=== PATIENT | male | born 1940 | race Caucasian/White ===

== ENCOUNTER 2017-01-11 | Outpatient (CLI) | payer MEDICARE | END 2017-01-11 11:34 | disposition critical access hospital (66) | CPT/HCPCS: A0425; A0427 ==

== ENCOUNTER 2017-01-11 12:00 | Emergency (ER) | payer MEDICARE ==
[2017-01-11] MEDS ORDERED: SODIUM CHLORIDE 0.9% 1,000 ML IV ONE (13:10)
== END 2017-01-11 15:04 | disposition home or self-care (01) ==
DX: R55 Syncope and collapse (principal); I95.89 Other hypotension; I10 Essential (primary) hypertension; I48.91 Unspecified atrial fibrillation; F17.200 Nicotine dependence, unspecified, uncomplicated

== ENCOUNTER 2017-12-06 12:46 | Outpatient (CLI) | payer MEDICARE | END 2017-12-06 12:47 | disposition home or self-care (01) | LOC: DI 12:46 | PROVIDERS: ATTEND Internal Medicine Cardiovascular Disease | DX: I77.810 Thoracic aortic ectasia (principal) | CPT/HCPCS: 93306 ==

== ENCOUNTER 2018-02-27 08:11 | Outpatient (CLI) | payer MEDICARE ==
[2018-02-27] MEDS ORDERED: IOPAMIDOL-300 50 ML VIAL ONE (08:32)
[2018-02-27] MEDS ORDERED: IOPAMIDOL-300 100 ML VIAL ONE (09:44)
[2018-02-27] MEDS ORDERED: IOPAMIDOL-300 50 ML VIAL PO ONE (10:20)
[2018-02-27] MEDS ORDERED: IOPAMIDOL-300 100 ML VIAL IVP ONE (10:20)
--- NOTE | 2018-02-27 12:16 | CT Report ---
CT ABDOMEN AND PELVIS WITH CONTRAST: 02/27/2018 CLINICAL INDICATION: Weight loss, history of Crohn's with ostomy. TECHNIQUE: Axial CT images of the abdomen and pelvis were obtained with 100 mL Isovue 300 intravenously as well as oral contrast. COMPARISON: 09/03/2016. FINDINGS: Limited evaluation of the lung bases demonstrate pleural calcifications and mild emphysema. ABDOMEN: The liver, spleen, pancreas and adrenal glands appear unremarkable. The kidneys again demonstrate bilateral cysts. No solid renal lesion is appreciated. The gallbladder is not dilated. No bowel dilatation, free gas, or free fluid is present. No abdominal adenopathy is seen. PELVIS: A right lower quadrant ostomy is present. Hutch diverticula are noted arising from the urinary bladder. No pelvic adenopathy or free fluid is present. Osseous structures demonstrate degenerative changes. IMPRESSION: NO EVIDENT ETIOLOGY FOR PATIENT'S WEIGHT LOSS. MULTIPLE RENAL CYSTS. POSTOPERATIVE CHANGES, WITH RIGHT LOWER QUADRANT OSTOMY. CT DOSE REDUCTION STATEMENT In accordance with CT protocol optimization, one or more of the following dose reduction techniques were utilized for this exam: automated exposure control, adjustment of mA and/or KV based on patient size, or use of iterative reconstructive technique. TD: [facility]27/2018 12[facility]15 [facility]
== END 2018-02-27 08:12 | disposition home or self-care (01) ==
LOC: DI 08:11
PROVIDERS: ATTEND Internal Medicine Gastroenterology
DX: R63.4 Abnormal weight loss (principal); K50.90 Crohn's disease, unspecified, without complications; Z93.3 Colostomy status
CPT/HCPCS: 74177; Q9967

== ENCOUNTER 2018-08-31 01:01 | Emergency (ER) | payer MEDICARE ==
[2018-08-31 01:50] LABS: BASOPHILS # (AUTO) 0.1 10^3/uL (0.0-0.1); BASOPHILS % (AUTO) 0.9 %; EOSINOPHILS # (AUTO) 0.1 10^3/uL (0.0-0.7); EOSINOPHILS % (AUTO) 0.6 %; HGB - HEMOGLOBIN 10.7 g/dL (14.0-18.0); LYMPHOCYTES % (AUTO) 11.7 %; MEAN CORPUSCULAR HEMOGLOBIN 34.6 pg (27.0-31.0); MEAN CORPUSCULAR HGB CONC 34.5 g/dL (32.0-36.0); MEAN CORPUSCULAR VOLUME 100.3 fL (80.0-94.0); MEAN PLATELET VOLUME 8.4 fL (7.4-11.4); MONOCYTES # (AUTO) 0.4 10^3/uL (0.0-1.0); MONOCYTES % (AUTO) 4.4 %; NEUTROPHILS # (AUTO) 7.1 10^3/uL (1.5-6.6); NEUTROPHILS % (AUTO) 82.4 %; PLT - PLATELET COUNT 225 10^3/uL (130-450); RED CELL DISTRIBUTION WIDTH 14.4 % (12.0-15.0); WHITE BLOOD COUNT 8.6 x10^3/uL (4.8-10.8)
--- NOTE | 2018-08-31 02:06 | XRAY Report ---
Reason: weakness Procedure Date: 08/31/2018 Accession Number: [id number] / [id number] Procedure: XR - Chest 2 View X-Ray CPT Code: 72950 FULL RESULT: EXAM: CHEST RADIOGRAPHY EXAM DATE: 08/31/2018 01:24 AM. CLINICAL HISTORY: Weakness. COMPARISON: CHEST 2 VIEW PA/LAT 01/24/2016 11:09 AM. TECHNIQUE: 2 views. FINDINGS: Lungs/Pleura: No focal opacities evident. No pleural effusion. No pneumothorax. Normal volumes. Mediastinum: Heart and mediastinal contours are unremarkable. Other: None. IMPRESSION: 1. No acute infiltrates. RADIA
--- NOTE | 2018-08-31 02:21 | ED Physician Documentation ---
PD HPI GI BLEED - Stated complaint Stated Complaint: WEAKNESS - Chief complaint Chief Complaint: Abd Pain - Additional information Additional information: 80-year-old male presents the emergency department with 2 days of increasing GI bleeding. The patient has a history of an ileostomySecondary to Crohn's disease. The patient has had the ileostomy for numerous years. The patient's noticed in the past 2 days increased bright red blood mixed in with liquid stool. The symptoms have been getting progressively worse. The patient now reports feeling weak and dizzy. No triggering factors. Symptoms are described as moderate. No relieving factors. No other associated symptoms. PD PAST MEDICAL HISTORY - Past Medical History Cardiovascular: Hypertension, Atrial fibrillation Respiratory: None Endocrine/Autoimmune: None GI: Crohn's disease - Past Surgical History Past Surgical History: Yes General: Bowel surgery - Present Medications Home Medications: Ambulatory Orders Medication Instructions Recorded Confirmed Multivitamin [Multivitamins] 1 each PO DAILY 12/10/13 08/31/18 [place]-3 Fatty Acids/Fish Oil [Fish 1,000 mg PO BID 12/10/13 08/31/18 Oil 1,000 mg Capsule] Alendronate [Fosamax] 70 mg PO Q7D 12/05/15 08/31/18 Cholecalciferol (Vitamin D3) 5,000 unit PO DAILY 12/05/15 08/31/18 [Vitamin D] Levothyroxine [Synthroid] 100 mcg PO DAILY 12/05/15 08/31/18 azaTHIOprine [Azathioprine] 100 mg PO DAILY 12/05/15 08/31/18 Cyanocobalamin (Vitamin B-12) 1,000 mcg PO DAILY 01/30/16 08/31/18 [Vitamin B12] Lisinopril 2.5 mg PO DAILY 01/11/17 08/31/18 Metoprolol Tartrate 25 mg PO DAILY 01/11/17 08/31/18 - Allergies Allergies/Adverse Reactions: Allergies Allergy/AdvReac Type Severity Reaction Status Date / Time No Known Drug Allergies Allergy Verified 08/31/18 01:13 - Social History Does the pt smoke?: Yes Smoking Status: Current every day smoker Does the pt drink ETOH?: Yes Does the pt have substance abuse?: No - Immunizations Immunizations are current?: Yes - POLST Patient has POLST: No Results - Vitals Vitals: Vital Signs - 24 hr 08/31/18 08/31/18 08/31/18 01:07 02:09 02:38 Temperature 36.6 C Heart Rate 89 84 84 Respiratory 16 18 16 Rate Blood Pressure 96/75 106/72 100/60 O2 Saturation 100 100 100 08/31/18 03:36 Temperature Heart Rate 82 Respiratory 14 Rate Blood Pressure 101/59 L O2 Saturation 98 Oxygen O2 Source Room air - EKG (time done) No standard instances Rhythm: NSR Intervals: Normal SD, QRS normal QRS: Normal Ischemia: Non specific changes - Labs Labs: Laboratory Tests 08/31/18 08/31/18 08/31/18 01:34 01:34 02:15 WBC 8.6 RBC 3.10 L Hgb 10.7 L Hct 31.1 L MCV 100.3 H MCH 34.6 H MCHC 34.5 RDW 14.4 Plt Count 225 MPV 8.4 Neut # (Auto) 7.1 H Lymph # (Auto) 1.0 L [place] # (Auto) 0.4 Eos # (Auto) 0.1 Baso # (Auto) 0.1 Absolute Nucleated RBC 0.00 Nucleated RBC % 0.0 PT 12.7 H INR 1.1 APTT 24.4 L Sodium Potassium Chloride Carbon Dioxide Anion Gap BUN Creatinine Estimated GFR (MDRD) Glucose Calcium Total Bilirubin AST ALT Alkaline Phosphatase Troponin I B-Natriuretic Peptide Total Protein Albumin Globulin Albumin/Globulin Ratio Lipase Urine Color Urine Clarity Urine pH Ur Specific [place] Urine Protein Urine Glucose (UA) Urine Ketones Urine Occult Blood Urine Nitrite Urine Bilirubin Urine Urobilinogen Ur Leukocyte Esterase Ur Microscopic Review Urine Culture Comments Blood Type O POSITIVE Antibody Screen NEGATIVE 08/31/18 08/31/18 08/31/18 02:15 02:15 02:15 WBC RBC Hgb Hct MCV MCH MCHC RDW Plt Count MPV Neut # (Auto) Lymph # (Auto) [place] # (Auto) Eos # (Auto) Baso # (Auto) Absolute Nucleated RBC Nucleated RBC % PT INR APTT Sodium 130 L Potassium 4.2 Chloride 103 Carbon Dioxide 20 L Anion Gap 7.0 BUN 33 H Creatinine 1.3 H Estimated GFR (MDRD) 54 L Glucose 105 H Calcium 8.1 L Total Bilirubin 0.5 AST 28 ALT 16 Alkaline Phosphatase 55 Troponin I < 0.04 B-Natriuretic Peptide 13 Total Protein 6.1 L Albumin 3.2 Globulin 2.9 Albumin/Globulin Ratio 1.1 Lipase 45 Urine Color Urine Clarity Urine pH Ur Specific [place] Urine Protein Urine Glucose (UA) Urine Ketones Urine Occult Blood Urine Nitrite Urine Bilirubin Urine Urobilinogen Ur Leukocyte Esterase Ur Microscopic Review Urine Culture Comments Blood Type Antibody Screen 08/31/18 03:15 WBC RBC Hgb Hct MCV MCH MCHC RDW Plt Count MPV Neut # (Auto) Lymph # (Auto) [place] # (Auto) Eos # (Auto) Baso # (Auto) Absolute Nucleated RBC Nucleated RBC % PT INR APTT Sodium Potassium Chloride Carbon Dioxide Anion Gap BUN Creatinine Estimated GFR (MDRD) Glucose Calcium Total Bilirubin AST ALT Alkaline Phosphatase Troponin I B-Natriuretic Peptide Total Protein Albumin Globulin Albumin/Globulin Ratio Lipase Urine Color YELLOW Urine Clarity CLEAR Urine pH 6.0 Ur Specific [place] <=1.005 Urine Protein NEGATIVE Urine Glucose (UA) NEGATIVE Urine Ketones NEGATIVE Urine Occult Blood NEGATIVE Urine Nitrite NEGATIVE Urine Bilirubin NEGATIVE Urine Urobilinogen 0.2 (NORMAL) Ur Leukocyte Esterase NEGATIVE Ur Microscopic Review NOT INDICATED Urine Culture Comments NOT INDICATED Blood Type Antibody Screen PD MEDICAL DECISION MAKING - ED course ED course: The case was discussed with the on-call general surgeon Dr. Castanon: I discussed with him the patient's presentation, past medical history and current findings. He recommends transfer to a center that could further manage the patient's GI bleeding since he does not do any endoscopies. The [facility] transfer center was contacted, I discussed the case with the transfer center physician who agrees with the plan for transfer. The patient has had a drop in his hemoglobin when compared to a prior hemoglobin from 2017. The patient's currently stable and has no emergent need for blood transfusion. The patient will require ongoing management and rechecking of his hemoglobin and hematocrit. The patient will require transfer to a center that can manage his acute symptoms. The findings and plan were discussed with the patient and his who understand and agree. The patient appears stable for transfer. Departure - Departure Disposition: 02 Transfer Acute Care Hosp Clinical Impression: GI bleed Qualifiers: GI bleed type/associated pathology: unspecified gastrointestinal hemorrhage type Qualified Code(s): K92.2 - Gastrointestinal hemorrhage, unspecified Anemia Qualifiers: Anemia type: unspecified type Qualified Code(s): D64.9 - Anemia, unspecified Condition: Fair
[2018-08-31 02:29] LABS: INR 1.1 (0.8-1.2); PT - PROTHROMBIN TIME 12.7 secs (9.9-12.6)
[2018-08-31 02:36] LABS: ALBUMIN 3.2 g/dL (3.2-5.5); ALBUMIN/GLOBULIN RATIO 1.1 (1.0-2.2); BILIRUBIN,TOTAL 0.5 mg/dL (0.2-1.0); CALCIUM 8.1 mg/dL (8.5-10.3); CREATININE 1.3 mg/dL (0.6-1.2); TOTAL PROTEIN 6.1 g/dL (6.7-8.2)
[2018-08-31 03:20] LABS: BILIRUBIN,URINE NEGATIVE (NEGATIVE); GLUCOSE, URINE (UA) NEGATIVE (NEGATIVE); KETONES,URINE (UA) NEGATIVE (NEGATIVE); LEUKOCYTE ESTERASE, URINE NEGATIVE (NEGATIVE); NITRITE,URINE NEGATIVE (NEGATIVE); OCCULT BLOOD,URINE NEGATIVE (NEGATIVE); PROTEIN,URINE NEGATIVE (NEGATIVE); UROBILINOGEN,URINE 0.2 (NORMAL) E.U./dL (NORMAL)
[2018-08-31 03:22] LABS: CLARITY,URINE CLEAR (CLEAR)
[2018-08-31 05:49] VITALS: BP 92/66
[2018-08-31] MEDS ORDERED: SODIUM CHLORIDE 0.9% 500 ML IV ONE (06:08)
== END 2018-08-31 06:45 | disposition short-term general hospital (02) ==
LOC: ED 01:01
DX: K92.1 Melena (principal); D64.9 Anemia, unspecified; Z87.19 Personal history of other diseases of the digestive system; Z93.2 Ileostomy status; I10 Essential (primary) hypertension; F17.200 Nicotine dependence, unspecified, uncomplicated
CPT/HCPCS: 36415; 71046; 80053; 81001; 81003; 83690; 83880; 84484; 85025; 85610; 85730; 86850; 86900; 86901; 87086; 93005; 99284

== ENCOUNTER 2018-08-31 08:05 | Outpatient (CLI) | payer MEDICARE | END 2018-08-31 08:06 | disposition short-term general hospital (02) | LOC: EMS 08:05 | PROVIDERS: ATTEND Surgery | DX: K92.2 Gastrointestinal hemorrhage, unspecified (principal) | CPT/HCPCS: A0170; A0425; A0426 ==

== ENCOUNTER 2018-09-16 08:20 | Outpatient (CLI) | payer MEDICARE ==
[2018-09-16 11:38] LABS: BASOPHILS % (AUTO) 0.2 %; EOSINOPHILS % (AUTO) 0.1 %; LYMPHOCYTES # (AUTO) 0.5 10^3/uL (1.5-3.5); LYMPHOCYTES % (AUTO) 4.2 %; MEAN CORPUSCULAR HEMOGLOBIN 32.2 pg (27.0-31.0); MEAN CORPUSCULAR HGB CONC 33.2 g/dL (32.0-36.0); MEAN PLATELET VOLUME 8.2 fL (7.4-11.4); MONOCYTES # (AUTO) 0.3 10^3/uL (0.0-1.0); MONOCYTES % (AUTO) 2.7 %; NEUTROPHILS # (AUTO) 10.6 10^3/uL (1.5-6.6); NEUTROPHILS % (AUTO) 92.8 %; PLT - PLATELET COUNT 293 10^3/uL (130-450); RED BLOOD COUNT 2.81 10^6/uL (4.70-6.10); RED CELL DISTRIBUTION WIDTH 18.1 % (12.0-15.0); WHITE BLOOD COUNT 11.4 x10^3/uL (4.8-10.8)
[2018-09-16 11:56] LABS: ALBUMIN 3.3 g/dL (3.2-5.5); ALKALINE PHOSPHATASE 55 IU/L (42-121); ALT ALANINE AMINOTRANSFERASE 20 IU/L (10-60); AST ASPARTATE AMINOTRANSFERASE 23 IU/L (10-42); BILIRUBIN,TOTAL 0.6 mg/dL (0.2-1.0)
[2018-09-16 13:20] LABS: BILIRUBIN,DIRECT < 0.1 mg/dL (0.1-0.5)
== END 2018-09-16 08:21 | disposition home or self-care (01) ==
LOC: LAB.F 08:20
PROVIDERS: ATTEND Internal Medicine Gastroenterology
DX: K50.00 Crohn's disease of small intestine without complications (principal)
CPT/HCPCS: 36415; 80076; 85025

== ENCOUNTER 2018-09-19 09:53 | Outpatient (CLI) | payer MEDICARE ==
[2018-09-19 17:45] LABS: BASOPHILS % (AUTO) 0.1 %; EOSINOPHILS % (AUTO) 0.1 %; HGB - HEMOGLOBIN 9.7 g/dL (14.0-18.0); LYMPHOCYTES # (AUTO) 0.2 10^3/uL (1.5-3.5); LYMPHOCYTES % (AUTO) 2.4 %; MEAN CORPUSCULAR HEMOGLOBIN 32.3 pg (27.0-31.0); MEAN CORPUSCULAR HGB CONC 32.6 g/dL (32.0-36.0); MEAN PLATELET VOLUME 8.4 fL (7.4-11.4); MONOCYTES # (AUTO) 0.2 10^3/uL (0.0-1.0); MONOCYTES % (AUTO) 2.4 %; NEUTROPHILS # (AUTO) 9.5 10^3/uL (1.5-6.6); PLT - PLATELET COUNT 272 10^3/uL (130-450); RED BLOOD COUNT 2.99 10^6/uL (4.70-6.10); RED CELL DISTRIBUTION WIDTH 18.1 % (12.0-15.0)
[2018-09-19 18:31] LABS: ALBUMIN 3.5 g/dL (3.2-5.5); BILIRUBIN,DIRECT 0.1 mg/dL (0.1-0.5); BILIRUBIN,TOTAL 0.8 mg/dL (0.2-1.0); TOTAL PROTEIN 6.1 g/dL (6.7-8.2)
== END 2018-09-19 09:54 | disposition home or self-care (01) ==
LOC: LAB.F 09:53
PROVIDERS: ATTEND Internal Medicine Gastroenterology
DX: K50.00 Crohn's disease of small intestine without complications (principal)
CPT/HCPCS: 36415; 80076; 85025

== ENCOUNTER 2018-09-22 13:56 | Outpatient (CLI) | payer MEDICARE ==
[2018-09-22 17:32] LABS: HGB - HEMOGLOBIN 9.5 g/dL (14.0-18.0); LYMPHOCYTES # (AUTO) 0.2 10^3/uL (1.5-3.5); LYMPHOCYTES % (AUTO) 2.3 %; MEAN CORPUSCULAR HEMOGLOBIN 32.4 pg (27.0-31.0); MEAN CORPUSCULAR VOLUME 98.1 fL (80.0-94.0); MEAN PLATELET VOLUME 8.1 fL (7.4-11.4); MONOCYTES # (AUTO) 0.1 10^3/uL (0.0-1.0); MONOCYTES % (AUTO) 1.1 %; NEUTROPHILS # (AUTO) 8.6 10^3/uL (1.5-6.6); NEUTROPHILS % (AUTO) 96.6 %; PLT - PLATELET COUNT 222 10^3/uL (130-450); RED BLOOD COUNT 2.93 10^6/uL (4.70-6.10); RED CELL DISTRIBUTION WIDTH 17.3 % (12.0-15.0); WHITE BLOOD COUNT 8.9 x10^3/uL (4.8-10.8)
[2018-09-22 17:47] LABS: ALBUMIN 3.4 g/dL (3.2-5.5); BILIRUBIN,DIRECT 0.1 mg/dL (0.1-0.5); BILIRUBIN,TOTAL 0.6 mg/dL (0.2-1.0)
== END 2018-09-22 13:57 | disposition home or self-care (01) ==
LOC: LAB.F 13:56
PROVIDERS: ATTEND Internal Medicine Gastroenterology
DX: K50.00 Crohn's disease of small intestine without complications (principal)
CPT/HCPCS: 36415; 80076; 85025

== ENCOUNTER 2019-10-01 06:53 | Outpatient (CLI) | payer MEDICARE | END 2019-10-01 06:54 | disposition short-term general hospital (02) | LOC: EMS 06:53 | PROVIDERS: ATTEND Surgery | DX: R53.1 Weakness (principal); R55 Syncope and collapse | CPT/HCPCS: A0425; A0427 ==

== ENCOUNTER 2022-06-01 09:41 | Outpatient (CLI) | payer MEDICARE ==
[2022-06-01 14:50] LABS: PHOSPHORUS 2.7 mg/dL (2.5-4.6); URIC ACID 6.7 mg/dL (2.6-7.2)
== END 2022-06-01 09:42 | disposition home or self-care (01) ==
LOC: LAB.S 09:41
PROVIDERS: ATTEND Internal Medicine Nephrology
DX: N21.9 Calculus of lower urinary tract, unspecified (principal)
CPT/HCPCS: 36415; 84100; 84550

== ENCOUNTER 2022-06-04 08:00 | Outpatient (CLI) | payer MEDICARE ==
[2022-06-04 15:49] LABS: CREATININE 24 HOUR,URINE 1470 mg/24h (800-2000); CREATININE,URINE 101.4 mg/dL; POTASSIUM,URINE 73.3 mmol/L; SODIUM, URINE < 12.0 mmol/L; TOTAL VOLUME 24HRS,URINE 1450 mL
[2022-06-05 13:09] LABS: CALCIUM URINE 7.3 mg/dL (Not Estab.)
== END 2022-06-04 23:59 | disposition home or self-care (01) ==
LOC: LAB.S 08:00
PROVIDERS: ATTEND Internal Medicine Nephrology
DX: N21.9 Calculus of lower urinary tract, unspecified (principal)
CPT/HCPCS: 36415; 81599; 82139; 82340; 82436; 82507; 82570; 82575; 83945; 84105; 84133; 84300; 84560

== ENCOUNTER 2022-07-20 09:16 | Outpatient (CLI) | payer MEDICARE ==
[2022-07-20 14:47] LABS: BILIRUBIN,URINE NEGATIVE (NEGATIVE); GLUCOSE, URINE (UA) NEGATIVE (NEGATIVE); KETONES,URINE (UA) NEGATIVE (NEGATIVE); LEUKOCYTE ESTERASE, URINE NEGATIVE (NEGATIVE); NITRITE,URINE NEGATIVE (NEGATIVE); OCCULT BLOOD,URINE NEGATIVE (NEGATIVE); PROTEIN,URINE 30 mg/dL (NEGATIVE); UROBILINOGEN,URINE 0.2 (NORMAL) E.U./dL (NORMAL)
[2022-07-20 14:48] LABS: CLARITY,URINE CLEAR (CLEAR)
[2022-07-20 14:54] LABS: RBC,URINE 0-5 /HPF (0-5); WBC,URINE 0-3 /HPF (0-3)
[2022-07-20 14:55] LABS: BACTERIA,URINE Few /HPF (None Seen); MUCUS,URINE Few Strands; SQUAMOUS EPITHELIAL CELL,UR FEW Squamous (<= Few)
== END 2022-07-20 09:17 | disposition home or self-care (01) ==
LOC: LAB.S 09:16
PROVIDERS: ATTEND Internal Medicine Nephrology
DX: N18.30 Chronic kidney disease, stage 3 unspecified (principal)
CPT/HCPCS: 81001; 81003; 87086

== ENCOUNTER 2023-10-21 20:16 | Outpatient (CLI) | payer MEDICARE | END 2023-10-21 20:17 | disposition critical access hospital (66) | LOC: EMS 20:16 | DX: R53.1 Weakness (principal); R11.2 Nausea with vomiting, unspecified | CPT/HCPCS: A0425; A0429 ==

== ENCOUNTER 2023-10-21 20:47 | Observation (INO) | payer MEDICARE ==
--- NOTE | 2023-10-21 20:45 | ED Physician Documentation ---
History of Present Illness - Stated complaint Stated Complaint: WEAKNESS/DIZZY - History obtained from History obtained from: Patient, Family, EMS - Additonal information Additional information: BIBA. HPI from patient, with contributions from EMS as well as patient's spouse (who is in the ED at patient's bedside). Patient is chief reason for coming to the ED tonight is that he received an email from his caption writer this evening advising him to go to the nearest ED for "need more workup and management than they performed in the clinic" as well as "you need to be considered for IV fluids as well" (this is per the email which the patient has printed out at a copy of which she is brought to the ED; the email indicates it was written by Dr. Keita who is patient's caption writer ). The patient went to an outpatient clinic earlier today for ongoing (months) of generalized weakness, dizziness (worsening recently). Patient says he had diarrhea yesterday but this has resolved. He says he developed nausea with emesis x 1 today but currently denies nausea. Patient describes a near-syncopal event that occurred earlier today while he was showering; he says he developed acute generalized weakness That was noticeably worse than to the generalized weakness he has been experiencing for the past few months. This weakness was to the extent that he "had to hold myself up" (per patient). However, the episode resolved spontaneously without specific intervention. He neither fell nor went to ground. He denies history of similar episodes. Patient had been on metoprolol but this was discontinued 1 week ago on the advice of his caption writer. Patient sees a caption writer for, per patient, "stage III kidney disease". Patient also has with him the discharge summary from the clinic visit; this indicates a COVID test was performed as well as a urinalysis. The result of the COVID test was negative, and the urinalysis results have no concerning or diagnostic findings (the results are included in the discharge instructions and I reviewed these at the bedside). Blood pressure at the time of discharge from the clinic was 95/65 per the discharge instructions. Patient is normotensive en route per EMS as well as when triaged in ED. Review of Systems Constitutional: reports: Fatigue. 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 denies: Abdominal Pain : denies: Dysuria, Frequency Musculoskeletal: reports: Reviewed and negative Neurologic: reports: Generalized weakness, Near syncope. denies: Focal weakness, Numbness, Confused, Altered mental status, Headache PD PAST MEDICAL HISTORY - Past Medical History Past Medical History: Yes Endocrine/Autoimmune: HyPOthyroidism Other Past Medical History: CKD - Past Surgical History Past Surgical History: Yes General: Bowel surgery, Other (bowel resection with ileostomy (due to complications of Crohns disease)) - Present Medications Home Medications: Ambulatory Orders Medication Instructions Recorded Confirmed Multivitamin [Multivitamins] 1 each PO DAILY 12/10/13 08/31/18 [place]-3 Fatty Acids/Fish Oil [Fish 1,000 mg PO BID 12/10/13 08/31/18 Oil 1,000 mg Capsule] Alendronate [Fosamax] 70 mg PO Q7D 12/05/15 08/31/18 Cholecalciferol (Vitamin D3) 5,000 unit PO DAILY 12/05/15 08/31/18 [Vitamin D] Levothyroxine [Synthroid] 100 mcg PO DAILY 12/05/15 08/31/18 azaTHIOprine [Azathioprine] 100 mg PO DAILY 12/05/15 08/31/18 Cyanocobalamin (Vitamin B-12) 1,000 mcg PO DAILY 01/30/16 08/31/18 [Vitamin B12] Metoprolol Tartrate 25 mg PO DAILY 01/11/17 08/31/18 lisinopriL [Lisinopril] 2.5 mg PO DAILY 01/11/17 08/31/18 - Allergies Allergies/Adverse Reactions: Allergies Allergy/AdvReac Type Severity Reaction Status Date / Time No Known Drug Allergies Allergy Verified 08/31/18 01:13 PD ED PE NORMAL - Vitals Vital signs reviewed: Yes - General General: Alert and oriented X 3, No acute distress, Well developed/nourished - HEENT HEENT: Other (dry mucous membranes) - Neck Neck: Supple, no meningeal sign, No JVD - Cardiac Cardiac: RRR, No murmur - Respiratory Respiratory: No respiratory distress, Clear bilaterally - Abdomen Abdomen: Soft, Non tender - Derm Derm: Normal color, Warm and dry - Extremities Extremities: No edema - Neuro Neuro: Alert and oriented X 3, architectural inspector 2-12 intact, No motor deficit, No sensory deficit, Normal speech Eye Opening: Spontaneous Motor: Obeys Commands Verbal: Oriented GCS Score: 15 Results - Vitals Vitals: Vital Signs - 24 hr 10/21/23 10/21/23 10/21/23 21:13 21:59 23:59 Temperature 36.6 C Heart Rate 100 96 94 Respiratory 16 16 16 Rate Blood Pressure 108/67 108/67 113/58 L O2 Saturation 99 100 99 10/22/23 01:00 Temperature Heart Rate 94 Respiratory 14 Rate Blood Pressure 99/77 O2 Saturation 99 Oxygen O2 Source Room air - EKG (time done) No standard instances EKG releavant findings:: EKG personally interpreted by author of this note. Relevant findings are: Rate: Rate (enter#) (99) Rhythm: NSR [place]: Normal Intervals: Normal ID, RBBB QRS: Normal Ischemia: Normal ST segments Computer interpretation: Disagree with computer (No ST abnormalities including no ST elevations) - Labs Labs: Laboratory Tests 10/21/23 10/21/23 10/21/23 20:12 20:12 20:12 WBC 12.5 H RBC 4.66 L Hgb 14.7 Hct 42.1 MCV 90.3 MCH 31.5 H MCHC 34.9 RDW 11.9 L Plt Count 305 MPV 9.8 Neut # (Auto) 10.4 H Lymph # (Auto) 1.2 L [place] # (Auto) 0.8 Eos # (Auto) 0.0 Baso # (Auto) 0.0 Absolute Nucleated RBC 0.00 Nucleated RBC % 0.0 Sodium 125 L Potassium 4.3 Chloride 95 L Carbon Dioxide 19 L Anion Gap 11.0 BUN 77 H Creatinine 3.4 H Estimated GFR (MDRD) 17 L Glucose 135 H Lactic Acid Calcium 9.8 Magnesium 1.7 Total Bilirubin 0.3 AST 23 ALT 23 Alkaline Phosphatase 94 Troponin I High Sens 30.2 H* Total Protein 7.6 Albumin 3.9 Globulin 3.7 Albumin/Globulin Ratio 1.1 Lipase 154 H TSH 0.91 10/22/23 10/22/23 00:18 01:05 WBC RBC Hgb Hct MCV MCH MCHC RDW Plt Count MPV Neut # (Auto) Lymph # (Auto) [place] # (Auto) Eos # (Auto) Baso # (Auto) Absolute Nucleated RBC Nucleated RBC % Sodium Potassium Chloride Carbon Dioxide Anion Gap BUN Creatinine Estimated GFR (MDRD) Glucose Lactic Acid 2.9 H Calcium Magnesium Total Bilirubin AST ALT Alkaline Phosphatase Troponin I High Sens 27.8 H* Total Protein Albumin Globulin Albumin/Globulin Ratio Lipase TSH - Rads (name of study) CXR Relevant Findings:: Prelim report reviewed, EMP independent interpretation of test (I reviewed these images and my interpretation is no cardiopulmonary abnormality demonstrated), See rad report PD Medical Decision Making - ED course Complexity details: reviewed old records (Reviewed previous (outpatient) test results (using patient's phone after he accessed his [employer] and showed them to me)), reviewed results, re-evaluated patient, considered differential, d/w patient ED course: Patient presents after being told he should go to the nearest ER by his caption writer for testing and possible treatment concerning ongoing, but steadily worsening generalized weakness and dizziness. As HPI, above, notes, the patient also is describing a near-syncopal episode to me that occurred earlier in the day today. Patient was normotensive throughout his ED stay. However, he has significant hyponatremia (125). Certainly, this would only potentially explain some contribution to his symptoms rather than a cause, as his symptoms started well before his sodium became abnormal. Specifically, the patient had outpatient tests 4 days ago, at which time his sodium was normal (138). Other notable abnormalities are BUN 77 (was 61 4 days ago), creatinine 3.4 (was 2.64 days ago), CO2 19 (was 24 4 days ago). I also see results from 09/27/23 (bun 65, creatinine 2.4) and 09/03/23 (bun 49, creatinine 2.1). I spoke with Dr. Jang (caption writer covering for this patient's caption writer I would of [place]/Sod). Dr. Jang is expressing concern that the BUN and creatinine have changed enough from his baseline so as to warrant inpatient admission (observation status could be appropriate) for more fluid replacement, repeat blood tests. Also concerning is the hyponatremia which is acute when compared to 4 days ago. He is given 1 L normal saline IV. My [employer] HCM DEVELOPER received approval from [facility] for admission to [facility]. Note that there are no concerning findings on EKG (performed due to the near- syncope). His initial hs-cTn is slightly elevated (30.2), but repeat hs-cTn is lower (27.8). While awaiting admission, I ordered a second liter of IV NS. ED [employer] HCM DEVELOPER was unable to obtain results of recent outpatient CT chest and A/P. In my d/w patient, it is not clear what prompted these studies to be undertaken; patient says he does not know results yet. Note that lactate level was performed per Dr. Jang's recommendation; this was based on CO2 level of 19 compared to 24 on 10/17/23 results. While awaiting admission to [facility], Dr. Jang recontacted me and reiterated her recommendation regarding admission for IV fluids, repeat testing. I relayed the lactate result to her. Departure - Departure Disposition: ED Place in Observation Clinical Impression: Hyponatremia Condition: Good Discharge Date/Time: 10/22/23 04:20
[2023-10-21] MEDS ORDERED: SODIUM CHLORIDE 0.9% 1,000 ML IV STA (21:17)
[2023-10-21 21:38] LABS: BASOPHILS % (AUTO) 0.2 %; EOSINOPHILS % (AUTO) 0.1 %; HCT - HEMATOCRIT 42.1 % (42.0-52.0); HGB - HEMOGLOBIN 14.7 g/dL (14.0-18.0); LYMPHOCYTES # (AUTO) 1.2 10^3/uL (1.5-3.5); LYMPHOCYTES % (AUTO) 9.8 %; MEAN CORPUSCULAR HEMOGLOBIN 31.5 pg (27.0-31.0); MEAN CORPUSCULAR HGB CONC 34.9 g/dL (32.0-36.0); MEAN CORPUSCULAR VOLUME 90.3 fL (80.0-94.0); MEAN PLATELET VOLUME 9.8 fL (7.4-11.4); MONOCYTES # (AUTO) 0.8 10^3/uL (0.0-1.0); MONOCYTES % (AUTO) 6.6 %; NEUTROPHILS # (AUTO) 10.4 10^3/uL (1.5-6.6); NEUTROPHILS % (AUTO) 82.8 %; PLT - PLATELET COUNT 305 10^3/uL (130-450); RED BLOOD COUNT 4.66 10^6/uL (4.70-6.10); RED CELL DISTRIBUTION WIDTH 11.9 % (12.0-15.0); WHITE BLOOD COUNT 12.5 x10^3/uL (4.8-10.8)
[2023-10-21 21:55] LABS: ALBUMIN 3.9 g/dL (3.2-5.5); ALBUMIN/GLOBULIN RATIO 1.1 (1.0-2.2); BILIRUBIN,TOTAL 0.3 mg/dL (0.2-1.0); CALCIUM 9.8 mg/dL (8.5-10.3); CREATININE 3.4 mg/dL (0.6-1.3); MAGNESIUM 1.7 mg/dL (1.7-2.3); POTASSIUM 4.3 mmol/L (3.5-4.5); TOTAL PROTEIN 7.6 g/dL (6.4-8.9)
[2023-10-21 22:06] LABS: THYROID STIMULATING HORMONE 0.91 uIU/mL (0.34-5.60)
--- NOTE | 2023-10-21 23:48 | XRAY Report ---
PROCEDURE: Chest 2 View X-Ray INDICATIONS: near-syncope TECHNIQUE: 2 views of the chest were acquired. COMPARISON: 01/24/2016. FINDINGS: Surgical changes and devices: None. Lungs and pleura: No pleural effusions or pneumothorax. Lungs are clear. Mediastinum: Mediastinal contours appear normal. Heart size is normal. Bones and chest wall: No suspicious bony lesions. Overlying soft tissues appear unremarkable. IMPRESSION: No acute cardiopulmonary process. Reviewed by: Niranjan Rodriguez MD on 10/21/2023 11:47 PM [facility] Approved by: Niranjan Rodriguez MD on 10/21/2023 11:47 PM [facility] Station ID: [id number]
[2023-10-22] MEDS ORDERED: SODIUM CHLORIDE 0.9% 1,000 ML IV STA (01:33)
[2023-10-22] MEDS ORDERED: ACETAMINOPHEN 325 MG TABLET PO PRN (03:07)
[2023-10-22] MEDS ORDERED: ONDANSETRON 4 MG/2 ML VIAL IVP PRN (03:07)
--- NOTE | 2023-10-22 03:35 | HISTORY & PHYSICAL EXAMINATION ---
Chief Complaint - Chief Complaint Chief Complaint: weakness, low Na History of Present Illness - History of Present Illness HPI Comment/Other: [facility] about worsening renal function and need for IVF. pt states having episodes of low bp over the past week, and at recommendation of his circulation assistant, he has stopped his bp meds. over the last 1-2 days he reports feeling week with occasional dizziness and did have episode in the shower where he felt like he may fall. no chest pain, sob, fevers, chills. he has also had a couple of episodes of nausea, vomiting, and loose stools. he also reports that he had gotten a ct chest / abd/ pelvis done in the last 1-2 days d/t concern for infection but reports are not available yet. History - Past Medical History Cardiovascular: reports: Hypertension, Atrial fibrillation Respiratory: reports: None Endocrine/Autoimmune: reports: None GI: reports: Crohn's disease MRSA Hx?: No - Past Surgical History General: reports: Bowel surgery - POLST Patient has POLST: No Meds/Allgy - Home Medications Home Medications: Ambulatory Orders Medication Instructions Recorded Confirmed Multivitamin [Multivitamins] 1 each PO DAILY 12/10/13 08/31/18 [place]-3 Fatty Acids/Fish Oil [Fish 1,000 mg PO BID 12/10/13 08/31/18 Oil 1,000 mg Capsule] Alendronate [Fosamax] 70 mg PO Q7D 12/05/15 08/31/18 Cholecalciferol (Vitamin D3) 5,000 unit PO DAILY 12/05/15 08/31/18 [Vitamin D] Levothyroxine [Synthroid] 100 mcg PO DAILY 12/05/15 08/31/18 azaTHIOprine [Azathioprine] 100 mg PO DAILY 12/05/15 08/31/18 Cyanocobalamin (Vitamin B-12) 1,000 mcg PO DAILY 01/30/16 08/31/18 [Vitamin B12] Metoprolol Tartrate 25 mg PO DAILY 01/11/17 08/31/18 lisinopriL [Lisinopril] 2.5 mg PO DAILY 01/11/17 08/31/18 - Allergies Allergies/Adverse Reactions: Allergies Allergy/AdvReac Type Severity Reaction Status Date / Time No Known Drug Allergies Allergy Verified 08/31/18 01:13 Review of Systems - Other Findings Other Findings: 14 pt review done with positives per hpi; all others reviewed as negative Exam - Vital Signs Vital Signs: Vital Signs x48h Temp Pulse Resp BP Pulse Ox 10/22/23 01:00 94 14 99/77 99 10/21/23 23:59 94 16 113/58 L 99 10/21/23 21:59 96 16 108/67 100 10/21/23 21:13 36.6 C 100 16 108/67 99 - Physical Exam Comments/Other: gen - aaox3, nad, polite heent - eomi, nc/at heart - rrr lungs - ctab abd- soft, nt msk - no acute trauma, rom intact Conclusion/Plan - Lab Results Fish Bones: 10/21/23 20:12 10/21/23 20:12 - Other Other Results/Comments: pt with - - hyponatremia Na 125, without neuro deficits likely acute since prior was wnl on IVF, aim for increase of 4-6 mEq/L in 24 - julia on ckd likely in setting of pre-renal azotemia / hypoperfusion (type a) check renal sono, renally dose meds give bicarb to prevent rta and treat lactic acidosis (below) - lactic acidosis likely in setting of above and gi losses no clear infectious source identified covid NEG, UA negative --> based on outside labs per ED provider cxr wnl continue with IVF and also PO rehydration, monitor reports of ct chest/abd/pelvis from outside facility pending give bicarb check blood cultures, rocephin x 1 dose - elevated troponin repeat was downtrending no chest pain and EKG without acute ischemic findings check 2d echo likely elevated d/t julia and deydration - hypotension likely related to above ivf, encourage po intake, hold bp meds check am cortisol levels
[2023-10-22 03:46] LABS: BASOPHILS % (AUTO) 0.1 %; EOSINOPHILS # (AUTO) 0.1 10^3/uL (0.0-0.7); EOSINOPHILS % (AUTO) 0.8 %; HCT - HEMATOCRIT 36.7 % (42.0-52.0); HGB - HEMOGLOBIN 12.5 g/dL (14.0-18.0); LYMPHOCYTES # (AUTO) 1.6 10^3/uL (1.5-3.5); LYMPHOCYTES % (AUTO) 17.6 %; MEAN CORPUSCULAR HEMOGLOBIN 31.7 pg (27.0-31.0); MEAN CORPUSCULAR HGB CONC 34.1 g/dL (32.0-36.0); MEAN CORPUSCULAR VOLUME 93.1 fL (80.0-94.0); MEAN PLATELET VOLUME 9.8 fL (7.4-11.4); MONOCYTES # (AUTO) 1.1 10^3/uL (0.0-1.0); MONOCYTES % (AUTO) 11.9 %; NEUTROPHILS # (AUTO) 6.4 10^3/uL (1.5-6.6); NEUTROPHILS % (AUTO) 69.2 %; PLT - PLATELET COUNT 249 10^3/uL (130-450); RED BLOOD COUNT 3.94 10^6/uL (4.70-6.10); RED CELL DISTRIBUTION WIDTH 12.1 % (12.0-15.0); WHITE BLOOD COUNT 9.2 x10^3/uL (4.8-10.8)
[2023-10-22] MEDS ORDERED: SODIUM BICARBONATE ABBOJECT 50 MEQ/50 ML SYRINGE IVP STA (03:49)
[2023-10-22] MEDS ORDERED: cefTRIAXone 1 GM in SODIUM CHLORIDE 0.9% MINIBAG 100 ML IV STA (03:50)
[2023-10-22 03:58] LABS: ALBUMIN 3.1 g/dL (3.2-5.5); ALBUMIN/GLOBULIN RATIO 1.1 (1.0-2.2); BILIRUBIN,TOTAL 0.2 mg/dL (0.2-1.0); CALCIUM 8.6 mg/dL (8.5-10.3); CHOL/HDL RATIO 2.9 (<5.0); CHOLESTEROL 104 mg/dL; HDL CHOLESTEROL 36 mg/dL; LDL CHOLESTEROL,CALCULATED 8 mg/dL; LDL/HDL RATIO 0.2 (<3.6); MAGNESIUM 1.6 mg/dL (1.7-2.3); POTASSIUM 3.6 mmol/L (3.5-4.5); TOTAL PROTEIN 5.9 g/dL (6.4-8.9); TRIGLYCERIDES 301 mg/dL (48-352); VLDL CHOLESTEROL 60 mg/dL
[2023-10-22 04:10] LABS: THYROID STIMULATING HORMONE 0.71 uIU/mL (0.34-5.60)
[2023-10-22] MEDS: SODIUM CHLORIDE FLUSH 0.9% 10 ML SYRINGE IVP PRN ×2 (04:48→19:38)
[2023-10-22] MEDS: LEVOTHYROXINE 100 MCG TABLET PO SCH (06:51)
--- NOTE | 2023-10-22 08:01 | CT Report ---
PROCEDURE: HEAD WO INDICATIONS: near syncope TECHNIQUE: Noncontrast 4.5 mm thick angled axial sections acquired from the foramen magnum to the vertex. For r adiation dose reduction, the following was used: automated exposure control, adjustment of mA and/or kV according to patient size. COMPARISON: CT head, 01/11/2017. FINDINGS: Image quality: Excellent. CSF spaces: Basal cisterns are patent. No extra-axial fluid collections. Ventricles are normal in size and shape. Brain: No midline shift. No intracranial masses or hemorrhage. Oneal-white matter interface is norm al. Skull and face: Calvarium and visualized facial bones are intact, without suspicious lesions. Sinuses: Visualized sinuses and mastoids are clear. IMPRESSION: No acute intracranial pathology. Findings are concordant with preliminary interpretation provided by [facility]. Reviewed by: Shabbir Fong MD on 10/22/2023 8:00 AM PST Approved by: Shabbir Fong MD on 10/22/2023 8:00 AM PST Station ID: [id number]
[2023-10-22] MEDS ORDERED: lisinopriL 5 MG TABLET PO SCH (09:00)
[2023-10-22] MEDS ORDERED: AZATHIOPRINE 50 MG PO SCH (09:00)
[2023-10-22] MEDS: HEPARIN 5,000 UNIT/ML VIAL SUBQ SCH ×2 (09:16→21:19)
[2023-10-22] MEDS: CHOLECALCIFEROL 5,000 UNIT CAPSULE PO SCH (09:22)
[2023-10-22] MEDS: OMEGA-3 ACID ETHYL ESTERS 1 GM CAPSULE PO SCH ×2 (09:23→20:53)
[2023-10-22] MEDS: MULTIVITAMIN TABLET PO SCH (09:23)
[2023-10-22] MEDS: CYANOCOBALAMIN 500 MCG TABLET PO SCH (09:23)
[2023-10-22] MEDS: SODIUM CHLORIDE FLUSH 0.9% 10 ML SYRINGE IVP SCH ×2 (09:24→16:50)
--- NOTE | 2023-10-22 10:42 | Ultrasound Report ---
PROCEDURE: Retroperitoneal INDICATIONS: julia TECHNIQUE: Real-time scanning was performed of the retroperitoneal organs, with image documentation. COMPARISON: None. FINDINGS: Kidneys: Kidneys are normal in size. Right kidney measures 10.0 cm long; left kidney measures 9.8 c m long. Right renal cortical thickness is 1.30 cm; left renal cortical thickness is 1.4 cm. No shauna d masses, hydronephrosis, or nephrolithiasis. Bilateral renal cysts are present. Bladder: Pre-void bladder volume is 392 mL. Patient unable to void. Possible lateral diverticulum wi th bladder calculus measuring 13 mm. Prostate is enlarged. Pre-void images demonstrate no intralumina l masses On pre-void images, bilateral ureteral jets are noted with color Doppler interrogation. (Of note, ureteral jets may not be detectable in up to 25% of cases due to insufficient differences in s pecific gravity between ureteral and bladder urine). Miscellaneous: No free abdominal fluid. IMPRESSION: 1. No hydronephrosis. 2. Bilateral renal cysts. 3. Possible urinary bladder diverticulum with urinary bladder calculus. Reviewed by: Elizabeth Kelly MD on 10/22/2023 10:41 AM PST Approved by: Elizabeth Kelly MD on 10/22/2023 10:41 AM PST Station ID: [id number]
--- NOTE | 2023-10-22 12:13 | PHARMACY PROGRESS NOTE ---
- Best Possible Medication History Admit Date and Time: 10/22/23306 Processed by: Pharmacy Medication History completed: Yes Patient Interview: Completed Secondary Source(s): Written medication list, Insurance records patient stated allergy to NSAIDs and aspirin to nursing however he stopped taking these on his own not because of an allergy but out of concern for an ulcer. As the person ultimately responsible for medication therapy, providers are able to order a medication from an existing home medication list in [facility] via the "Reconcile Routine" prior to Confirmation of that medication by customer support advisor. Such practice is discouraged except when the physician, in their clinical judgment, deems that a medical need exists for a medication without regard to previous use.
[2023-10-22 12:22] LABS: ESTIMATED AVERAGE GLUCOSE 126 mg/dL (70-100)
--- NOTE | 2023-10-22 16:20 | Ultrasound Report ---
PROCEDURE: Carotid Doppler Complete INDICATIONS: pre-syncope TECHNIQUE: Color and pulse Doppler interrogation was performed of both carotid systems, with image documentation and velocity measurements. COMPARISON: None. FINDINGS: Right side: Brachial blood pressure: 150 or 68 mm Hg. Common carotid artery peak systolic velocity: 76 cm/sec. Internal carotid artery peak systolic velocity: 63 cm/sec. Internal carotid artery end diastolic velocity: 14 cm/sec. External carotid artery peak systolic velocity: 138 cm/sec. ICA/CCA peak systolic ratio: .83 . Oneal scale imaging description: Moderate atherosclerotic plaque. Percent internal carotid artery stenosis: 50-69 percent stenosis based on grayscale plaque. Vertebral artery: Flow direction is antegrade. Left side: Brachial blood pressure: 109/64 mm Hg. Common carotid artery peak systolic velocity: 64 cm/sec. Internal carotid artery peak systolic velocity: 66 cm/sec. Internal carotid artery end diastolic velocity: 24 cm/sec. External carotid artery peak systolic velocity: 73 cm/sec. ICA/CCA peak systolic ratio: 1.03 . Oneal scale imaging description: No significant atherosclerotic plaque. Percent internal carotid artery stenosis: Less than 50 percent stenosis. Vertebral artery: Flow direction is antegrade. IMPRESSION: 1. In the right internal carotid artery, there is less than 50 percent stenosis based on peak systoli c velocity criteria. However, there appears to be just over 50% stenosis based on atherosclerotic nadine que. 2. In the left internal carotid artery, there is less than 50 percent stenosis based on peak systolic velocity criteria. 3. Antegrade blood flow within the right vertebral artery. 4. Antegrade blood flow within the left vertebral artery. The estimate of stenosis included in the report of the imaging study was calculated using the [facility]-end orsed standards of carotid artery stenosis. Reviewed by: Teja Mares MD on 10/22/2023 4:19 PM PST Approved by: Teja Mares MD on 10/22/2023 4:19 PM PST Station ID: [id number]
[2023-10-22] MEDS: SODIUM CHLORIDE 0.9% 1,000 ML IV SCH (19:38)
[2023-10-23] MEDS: SODIUM CHLORIDE FLUSH 0.9% 10 ML SYRINGE IVP SCH ×3 (00:40→21:17)
[2023-10-23 04:38] LABS: BASOPHILS % (AUTO) 0.4 %; EOSINOPHILS # (AUTO) 0.1 10^3/uL (0.0-0.7); EOSINOPHILS % (AUTO) 1.9 %; HGB - HEMOGLOBIN 12.9 g/dL (14.0-18.0); LYMPHOCYTES # (AUTO) 1.5 10^3/uL (1.5-3.5); LYMPHOCYTES % (AUTO) 19.8 %; MEAN CORPUSCULAR HEMOGLOBIN 31.6 pg (27.0-31.0); MEAN CORPUSCULAR HGB CONC 33.9 g/dL (32.0-36.0); MEAN CORPUSCULAR VOLUME 93.1 fL (80.0-94.0); MEAN PLATELET VOLUME 9.8 fL (7.4-11.4); MONOCYTES # (AUTO) 0.9 10^3/uL (0.0-1.0); MONOCYTES % (AUTO) 12.4 %; NEUTROPHILS # (AUTO) 4.9 10^3/uL (1.5-6.6); PLT - PLATELET COUNT 274 10^3/uL (130-450); RED BLOOD COUNT 4.08 10^6/uL (4.70-6.10); RED CELL DISTRIBUTION WIDTH 12.4 % (12.0-15.0); WHITE BLOOD COUNT 7.6 x10^3/uL (4.8-10.8)
[2023-10-23 04:54] LABS: CALCIUM 8.9 mg/dL (8.5-10.3); CREATININE 2.5 mg/dL (0.6-1.3); POTASSIUM 4.4 mmol/L (3.5-4.5)
[2023-10-23] MEDS: LEVOTHYROXINE 100 MCG TABLET PO SCH (06:59)
[2023-10-23] MEDS: CYANOCOBALAMIN 500 MCG TABLET PO SCH (09:21)
[2023-10-23] MEDS: OMEGA-3 ACID ETHYL ESTERS 1 GM CAPSULE PO SCH ×2 (09:21→21:17)
[2023-10-23] MEDS: CHOLECALCIFEROL 5,000 UNIT CAPSULE PO SCH ×2 (09:21→09:27)
[2023-10-23] MEDS: MULTIVITAMIN TABLET PO SCH (09:21)
[2023-10-23] MEDS: HEPARIN 5,000 UNIT/ML VIAL SUBQ SCH ×2 (09:21→21:16)
[2023-10-23] MEDS ORDERED: FAMOTIDINE 20 MG TABLET PO PRN (11:44)
--- NOTE | 2023-10-23 11:47 | PROVIDER PROGRESS NOTE ---
Assessment/Plan - Problem List (1) Orthostatic hypotension Assessment/Plan: Due to his near syncope, orthostatic vital signs were ordered to be checked. He was put on Lisinopril 2.5 daily by the admitting Telemedicine doctor. Today his reconciled med list is complete and there is no blood pressure med on the list whatsoever. In the past he was on Lisinopril Today he is very orthostatic with Supine BP 122/70, HR 68, Sitting BP 116/71, HR 85, Standing BP 99/70, HR 102 Plan: Patient is not ready for discharge Continue with low-level IV NS hydration I will stop the Lisinopril Continue to check orthostatic vital signs now at least daily (2) Near syncope Assessment/Plan: This is the main reason he presented to the ER By labs he was volume depleted. Telem has shown no signif dysrhythmias, hos Echo showed a normal LVEF and normal PAP, his carotid Dopplers showed bilat stenoses <50% By vital sign checks he is still orthostatic Plan: As in #1. (3) Acute kidney injury superimposed on CKD Assessment/Plan: This was felt to be due to volume depletion. He got a liter of fluids which was stopped. Then I continued NS at [facility] since yesterday. Labs were all reviewed. His BUN/creatinine have improved since admission from 73 /3.0 >> 62/2.5 today (his baseline creat is 2.0). Plan: Continue low level IV NS hydration Follow BUN/creatinine daily I will resume his usual renal meds (4) Hypomagnesemia Assessment/Plan: Despite having CKD and not being on diuretics, he is low in magnesium. Plan: Will recheck Mg level and if low will replace x 1 (5) Crohn's disease Assessment/Plan: The patient had a total colectome, and he has had an ileostomy for 50 years. Plan: I will resume his Crohn's medication as patient's own med. (6) Lung mass Assessment/Plan: Patient reported that he had CT abdomen pelvis done just several days before admission looking for ___ He showed me the reports on MyChart. There were several findings and the most significant was that he has COPD and a spiculated mass in his lung Plan: I gave him the results. I tiold him he needs outpatient work-up and follow-up for this lumg mass. Smoking cessation was discussed (7) Hyponatremia Assessment/Plan: Resolved with iv NS (8) Lactic acidosis Assessment/Plan: Resolved It was probably due to hypotension causing hypoperfusion - Current Meds Current Meds: Current Medications Generic Name Dose Route Start Last Admin Trade Name Freq PRN Reason Stop Dose Admin Cyanocobalamin 1,000 mcg 10/22/23 09:00 10/23/23 09:21 Cyanocobalamin 500 Mcg Tablet PO 1,000 mcg DAILY ÁNGEL Administration Heparin Sodium (Porcine) 5,000 unit 10/22/23 09:00 10/23/23 09:21 Heparin 5,000 Unit/Ml Vial SUBQ 5,000 unit BID ÁNGEL Administration Sodium Chloride 1,000 mls @ 40 mls/hr 10/22/23 20:00 10/22/23 19:38 Normal Saline 0.9% IV 40 mls/hr .Q25H ÁNGEL Administration Levothyroxine Sodium 100 mcg 10/22/23 07:00 10/23/23 06:59 Levothyroxine 100 Mcg Tablet PO 100 mcg QDAC ÁNGEL Administration Multivitamins 1 tab 10/22/23 08:00 10/23/23 09:21 Multivitamin Tablet PO 1 tab DAILYWM ÁNGEL Administration Yeswm-4-Ebty Ethyl Esters 1 gm 10/22/23 09:00 10/23/23 09:21 [place]-3 Acid Ethyl Esters 1 Gm Capsule PO 1 gm BID ÁNGEL Administration Sodium Chloride 10 ml 10/22/23 03:07 10/22/23 19:38 Sodium Chloride Flush 0.9% 10 Ml Syringe IVP 10 ml PRN PRN Administration NEEDED PER PROVIDER ORDERS Sodium Chloride 10 ml 10/22/23 09:00 10/23/23 09:22 Sodium Chloride Flush 0.9% 10 Ml Syringe IVP Not Given 0100,0900,1700 ÁNGEL - Lab Result Fish Bone Diagrams: 10/24/23 04:57 10/24/23 04:57 - Additional Planning My Orders: My Active Orders 10/22/23 16:49 Orthostatic [Vital Signs - Orthostatic] [RC] QSHIFT 10/22/23 20:00 Sodium Chloride 0.9% [Normal Saline 0.9%] 1,000 ml IV 40 mls/hr 10/23/23 05:00 MAGNESIUM [CHEM] Routine 10/23/23 11:44 Famotidine [Pepcid] 20 mg PO DAILY PRN 10/23/23 11:45 Adalimumab-Atto [Amjevita(Cf)] 40 mg SUBQ OAW 10/23/23 12:00 Ferrous Sulfate [Feosol] 325 mg PO DAILY 10/23/23 14:00 Neutra-Phos [K-Phos Neutral] 500 mg PO TID 10/24/23 05:00 MAGNESIUM [CHEM] DAILYLAB Subjective - Subjective Patient Reports: Feeling Better, No Complaints (No nausea and vomiting for day and a half. Dizzy this morning with standing, not dizzy in the afternoon) Objective Vital Signs: Vital Signs - 24 hr 10/22/23 10/23/23 10/23/23 16:00 00:34 07:34 Temperature 36.6 C 36.7 C 36.6 C Heart Rate [ 89 78 68 Brachial] Respiratory 16 14 18 Rate Blood Pressure 123/68 107/68 122/70 [Right Brachial artery] O2 Saturation 98 97 95 Oxygen O2 Source Room air I&O (Last 24 Hrs): Intake and Output Totals x24h 10/21/23 10/22/23 10/23/23 23:59 23:59 23:59 Intake Total 1000 970 480 Balance 1000 970 480 General: Alert, Oriented x3 HEENT: EOMI, Mucous membr. moist/pink Neck: Supple, No JVD Neuro: Alert, Non Focal Cardiovascular: Regular rate, No murmurs Respiratory: No respiratory distress, Breath sounds nml Abdomen: Normal bowel sounds, Soft Extremities: No clubbing, No edema, No tenderness/swelling - Results Results: Laboratory Results WBC 7.6 x10^3/uL (4.8-10.8) 10/23/23 04:30 RBC 4.08 10^6/uL (4.70-6.10) L 10/23/23 04:30 Hgb 12.9 g/dL (14.0-18.0) L 10/23/23 04:30 Hct 38.0 % (42.0-52.0) L 10/23/23 04:30 MCV 93.1 fL (80.0-94.0) 10/23/23 04:30 MCH 31.6 pg (27.0-31.0) H 10/23/23 04:30 MCHC 33.9 g/dL (32.0-36.0) 10/23/23 04:30 RDW 12.4 % (12.0-15.0) 10/23/23 04:30 Plt Count 274 10^3/uL (130-450) 10/23/23 04:30 MPV 9.8 fL (7.4-11.4) 10/23/23 04:30 Neut # (Auto) 4.9 10^3/uL (1.5-6.6) 10/23/23 04:30 Lymph # (Auto) 1.5 10^3/uL (1.5-3.5) 10/23/23 04:30 [place] # (Auto) 0.9 10^3/uL (0.0-1.0) 10/23/23 04:30 Eos # (Auto) 0.1 10^3/uL (0.0-0.7) 10/23/23 04:30 Baso # (Auto) 0.0 10^3/uL (0.0-0.1) 10/23/23 04:30 Absolute Nucleated RBC 0.00 x10^3/uL 10/23/23 04:30 Nucleated RBC % 0.0 /100WBC 10/23/23 04:30 Sodium 133 mmol/L (135-145) L 10/23/23 04:30 Potassium 4.4 mmol/L (3.5-4.5) 10/23/23 04:30 Chloride 107 mmol/L (101-111) 10/23/23 04:30 Carbon Dioxide 20 mmol/L (21-32) L 10/23/23 04:30 Anion Gap 6.0 (6-13) 10/23/23 04:30 BUN 62 mg/dL (6-20) H 10/23/23 04:30 Creatinine 2.5 mg/dL (0.6-1.3) H 10/23/23 04:30 Estimated GFR (MDRD) 25 (>89) L 10/23/23 04:30 Glucose 87 mg/dL (74-104) 10/23/23 04:30 Estimat Average Glucose 126 mg/dL (70-100) H 10/22/23 03:34 Hemoglobin A1c % 6.0 % (4.27-6.07) 10/22/23 03:34 Lactic Acid 1.5 mmol/L (0.5-2.2) 10/22/23 03:34 Calcium 8.9 mg/dL (8.5-10.3) 10/23/23 04:30 Magnesium 1.6 mg/dL (1.7-2.3) L 10/22/23 03:34 Total Bilirubin 0.2 mg/dL (0.2-1.0) 10/22/23 03:34 AST 18 IU/L (10-42) 10/22/23 03:34 ALT 16 IU/L (10-60) 10/22/23 03:34 Alkaline Phosphatase 74 IU/L (42-121) 10/22/23 03:34 Troponin I High Sens 27.8 ng/L (2.3-19.7) H* 10/22/23 00:18 Total Protein 5.9 g/dL (6.4-8.9) L 10/22/23 03:34 Albumin 3.1 g/dL (3.2-5.5) L 10/22/23 03:34 Globulin 2.8 g/dL (2.1-4.2) 10/22/23 03:34 Albumin/Globulin Ratio 1.1 (1.0-2.2) 10/22/23 03:34 Triglycerides 301 mg/dL (48-352) 10/22/23 03:34 Cholesterol 104 mg/dL (-200) 10/22/23 03:34 LDL Cholesterol, Calc 8 mg/dL (-129) 10/22/23 03:34 VLDL Cholesterol 60 mg/dL 10/22/23 03:34 HDL Cholesterol 36 mg/dL (60-) L 10/22/23 03:34 LDL/HDL Ratio 0.2 (<3.6) 10/22/23 03:34 Cholesterol/HDL Ratio 2.9 (<5.0) 10/22/23 03:34 Lipase 154 U/L (11-82) H 10/21/23 20:12 TSH 0.71 uIU/mL (0.34-5.60) 10/22/23 03:34 Cortisol AM Sample 10.4 ug/dL 10/22/23 03:34
[2023-10-23] MEDS ORDERED: ADALIMUMAB SUBQ SCH (12:00)
[2023-10-23] MEDS ORDERED: [UNRECOGNIZED DRUG - OTHER] SUBQ SCH (12:00)
[2023-10-23] MEDS: NEUTRA-PHOS 250 MG TABLET PO SCH ×2 (14:19→21:17)
[2023-10-23] MEDS: FERROUS SULFATE 325 MG TABLET PO SCH (14:24)
[2023-10-23] MEDS: SODIUM CHLORIDE 0.9% 1,000 ML IV SCH (20:16)
[2023-10-24] MEDS: SODIUM CHLORIDE FLUSH 0.9% 10 ML SYRINGE IVP SCH ×2 (00:43→09:10)
[2023-10-24 04:36] VITALS: BP 123/70; O2SAT 97
[2023-10-24 05:11] LABS: BASOPHILS % (AUTO) 0.4 %; EOSINOPHILS # (AUTO) 0.2 10^3/uL (0.0-0.7); HCT - HEMATOCRIT 39.5 % (42.0-52.0); HGB - HEMOGLOBIN 13.1 g/dL (14.0-18.0); LYMPHOCYTES # (AUTO) 1.5 10^3/uL (1.5-3.5); LYMPHOCYTES % (AUTO) 18.7 %; MEAN CORPUSCULAR HEMOGLOBIN 31.6 pg (27.0-31.0); MEAN CORPUSCULAR HGB CONC 33.2 g/dL (32.0-36.0); MEAN CORPUSCULAR VOLUME 95.2 fL (80.0-94.0); MEAN PLATELET VOLUME 9.9 fL (7.4-11.4); MONOCYTES # (AUTO) 1.2 10^3/uL (0.0-1.0); MONOCYTES % (AUTO) 14.1 %; NEUTROPHILS # (AUTO) 5.3 10^3/uL (1.5-6.6); NEUTROPHILS % (AUTO) 64.2 %; PLT - PLATELET COUNT 271 10^3/uL (130-450); RED BLOOD COUNT 4.15 10^6/uL (4.70-6.10); RED CELL DISTRIBUTION WIDTH 12.7 % (12.0-15.0); WHITE BLOOD COUNT 8.2 x10^3/uL (4.8-10.8)
[2023-10-24] MEDS: LEVOTHYROXINE 100 MCG TABLET PO SCH (05:22)
[2023-10-24 05:24] LABS: CALCIUM 8.9 mg/dL (8.5-10.3); CREATININE 2.2 mg/dL (0.6-1.3); MAGNESIUM 1.6 mg/dL (1.7-2.3); POTASSIUM 4.2 mmol/L (3.5-4.5)
[2023-10-24] MEDS ORDERED: NEUTRA-PHOS 250 MG TABLET PO SCH (08:00)
[2023-10-24] MEDS ORDERED: SODIUM CHLORIDE 0.9% 500 ML IV ONE (08:57)
--- NOTE | 2023-10-24 09:02 | Discharge Plan ---
Discharge Plan Problem Reviewed?: Yes Disposition: 01 Home, Self Care Condition: Fair Diet: Regular (You should eat more "good cholesterol" foods like seafood, and olive oil and the Mediterranean diet is recommended. You should decrease sweets and starches. You should be drinking to quench her thirst, and be drinking fluids with substance (broths, juices, electrolyte drinks), not just water.) Activity Restrictions: Activity as Tolerated (If lightheaded, you should not be driving) Shower Restrictions: No Driving Restrictions: No Instruction Topics: ED Hypotension Orthostatic Health Concerns: You were hospitalized to treat your low serum sodium, and your worsened kidney function. We found that both of these were caused by dehydration. You needed IV fluids all the days you were here. That has corrected your sodium and improved your kidney function substantially. We found that your blood pressure drops when you stand, this was the cause of your being dizzy in the shower. This was also caused by volume depletion (dehydration). Therefore, you need to be hydrating better. You should be drinking to quench her thirst, do not be restricting fluids. You may drink fluids that contain some salt, like electrolyte drinks, broths and juices are okay. If you only drink water, you will "waterlog" yourself and again have a low serum sodium level. Plan of Treatment: As above. Care Goals: Improvement in symptoms and stabilization are the goals. Assessment: Patient understands and is agreeable with the plan. No Smoking: If you smoke, Please STOP! Call for help.
[2023-10-24] MEDS: MULTIVITAMIN TABLET PO SCH (09:08)
[2023-10-24] MEDS: HEPARIN 5,000 UNIT/ML VIAL SUBQ SCH (09:08)
[2023-10-24] MEDS: CYANOCOBALAMIN 500 MCG TABLET PO SCH (09:08)
[2023-10-24] MEDS: OMEGA-3 ACID ETHYL ESTERS 1 GM CAPSULE PO SCH (09:08)
[2023-10-24] MEDS: FERROUS SULFATE 325 MG TABLET PO SCH (09:08)
--- NOTE | 2023-10-24 09:09 | DISCHARGE SUMMARY ---
Discharge Summary Admit Date: 10/22/23 Discharge Date: 10/24/23 Discharging Provider: Dr Claudia Morales Primary Care Provider: Dr Edwin Reyes Code Status: Attempt Resuscitation Condition at Discharge: Fair Discharge Disposition: 01 Home, Self Care - HPI History of Present Illness: pt presented to hospital at [facility] d/t concerns about worsening renal function and need for IVF. pt states having episodes of low bp over the past week, and at recommendation of his wood model maker, he has stopped his bp meds. over the last 1-2 days he reports feeling week with occasional dizziness and did have episode in the shower where he felt like he may fall. no chest pain, sob, fevers, chills. he has also had a couple of episodes of nausea, vomiting, and loose stools. he also reports that he had gotten a ct chest / abd/ pelvis done in the last 1-2 days d/t concern for infection but reports are not available yet. - HOSPITAL COURSE Hospital Course: (1) Acute kidney injury superimposed on CKD This was felt to be due to volume depletion. He got a liter of fluids rapidly then was continued on slow NS iv hydration until discharge. His BUN/creatinine improved daily from 73/3.0 >> 62/2.5>> 57/2.2 at discharge. He was educated about better hydration. (2) Hyponatremia Resolved with iv Saline (3) Near syncope This was his complaint when he presented to the ER. He said all his BP meds were recently discontinued by his wood model maker. Telemetry showed no signif dysrhythmias. His Echo showed a normal LVEF and normal PAP. His carotid Dopplers showed bilat stenoses that were <50%. By labwork, he was volume depleted. He was very orthostatic, and his lightheadedness resolved with iv fluids. He was educated about better hydration and reminded not to be driving if he is lightheaded. (4) Orthostatic hypotension He was quite orthostatic (Supine BP 122/70, HR 68, Sitting BP 116/71, HR 85, Standing BP 99/70, HR 102). He needed iv hydration and a saline bolus. (5) Hypomagnesemia Despite having CKD and not being on diuretics, he was low in magnesium. It was replaced (6) Crohn's disease The patient had a total colectomy and has an ileostomy for 50 years. We kept him on his Crohn's medication as patient's own med. (7) Lung mass Patient said a CT chest and CT abd/pelvis was recently done. He showed me the reports on MyChart. There were several findings and the most significant was that he has COPD and a spiculated mass in his lung. I gave him his CT results. I told him he needs outpatient work-up and follow-up for this lung mass and that he must stop smoking. (8) Lactic acidosis Resolved with iv fluids. It was probably due to hypotension plus uremia. There were no signs of infection or sepsis. - ALLERGIES Allergies/Adverse Reactions: Allergies Allergy/AdvReac Type Severity Reaction Status Date / Time No Known Drug Allergies Allergy Verified 08/31/18 01:13 - MEDICATIONS Home Medications: Ambulatory Orders Medication Instructions Recorded Confirmed [place]-3 Fatty Acids/Fish Oil [Fish 1,000 mg PO BID 12/10/13 10/22/23 Oil 1,000 mg Capsule] Levothyroxine [Synthroid] 100 mcg PO DAILY 12/05/15 10/22/23 Adalimumab-Atto [Amjevita(Cf)] 40 mg SUBQ OAW 10/22/23 10/22/23 Famotidine [Pepcid] 20 mg PO DAILY PRN 10/22/23 10/22/23 Ferrous Sulfate [Feosol] 325 mg PO DAILY 10/22/23 10/22/23 Neutra-Phos [K-Phos Neutral] 500 mg PO TID 10/22/23 10/22/23 Wheat Dextrin [Benefiber] 1 packet PO DAILY 10/22/23 10/22/23 Cyanocobalamin [Vitamin B-12] 1,000 mcg PO DAILY tab 10/24/23 Multivitamin [Theragran] 1 tab PO DAILYWM tab 10/24/23 - PHYSICAL EXAM AT DISCHARGE General Appearance: positive: No acute distress, Alert Eyes Bilateral: positive: Normal inspection, EOMI ENT: positive: ENT inspection nml, No signs of dehydration Neck: positive: Nml inspection, No JVD Respiratory: positive: No respiratory distress, Breath sounds nml Cardiovascular: positive: Regular rate & rhythm, No murmur Abdomen: positive: Non-tender, Nml bowel sounds Skin: positive: Warm, Dry Extremities: positive: Non-tender, No pedal edema Neurologic/Psychiatric: positive: Oriented x3, CN's nml (2-12), Motor nml - LABS Result Diagrams: 10/24/23 04:57 10/24/23 04:57 - DIAGNOSTIC IMAGING Diagnostic Imaging Results: Final report reviewed - FOLLOW UP Follow Up: See PCP and Ultrasonographer for hospital F/U. - TIME SPENT Time Spent in Discharge (Minutes): 35
--- NOTE | 2023-10-24 09:14 | Discharge Plan ---
Discharge Plan Problem Reviewed?: Yes Disposition: Home, Self Care Condition: Fair Activity Restrictions: Activity as Tolerated (If lightheaded, you should not be driving) Shower Restrictions: No Driving Restrictions: No Instruction Topics: ED Hypotension Orthostatic Health Concerns: You were hospitalized to treat your low serum sodium, and your worsened kidney function. We found that both of these were caused by dehydration. You needed IV fluids all the days you were here. That has corrected your sodium and improved your kidney function substantially. We found that your blood pressure drops when you stand, this was the cause of your being dizzy in the shower. This was also caused by volume depletion (dehydration). Therefore, you need to be hydrating better. You should be drinking to quench her thirst, do not be restricting fluids. You may drink fluids that contain some salt, like electrolyte drinks, broths and juices are okay. If you only drink water, you will "waterlog" yourself and again have a low serum sodium level. Please see your Primary Care Provider for follow-up of lab work and for evaluation and management of the new lung mass that was found on your lung CT scan, which could be cancerous (the CT scan done before you were hospitalized here). You must stop smoking! Plan of Treatment: As above. Care Goals: Improvement in symptoms and stabilization are the goals. Assessment: Patient understands and is agreeable with the plan. No Smoking: If you smoke, Please STOP! Call for help. Follow-up with: KIEL GODINEZ MD [Primary Care Provider] -
== END 2023-10-24 15:00 | disposition home or self-care (01) ==
LOC: EDUNIT# → ED 20:47 → MS3 10-22 03:07
PROVIDERS: ADMIT Student in an Organized Health Care Education/Training Program; ATTEND Internal Medicine
DX: N17.9 Acute kidney failure, unspecified (principal); N18.9 Chronic kidney disease, unspecified; E87.1 Hypo-osmolality and hyponatremia; E86.0 Dehydration; E87.20 Acidosis, unspecified; R79.89 Other specified abnormal findings of blood chemistry; I95.1 Orthostatic hypotension; E83.42 Hypomagnesemia; K50.90 Crohn's disease, unspecified, without complications; J44.9 Chronic obstructive pulmonary disease, unspecified; R91.8 Other nonspecific abnormal finding of lung field; I48.91 Unspecified atrial fibrillation
CPT/HCPCS: 36415; 70450; 71046; 76770; 80048; 80053; 80061; 82533; 83036; 83605; 83690; 83735; 84443; 84484; 85025; 87040; 93005; 93306; 93880; 96361; 96365; 96375; 96376; 99285; A9270; G0378; 83721

== ENCOUNTER 2024-01-04 16:52 | Outpatient (CLI) | payer MEDICARE | END 2024-01-04 23:59 | disposition critical access hospital (66) | LOC: EMS 16:52 | DX: R10.31 Right lower quadrant pain (principal); R10.32 Left lower quadrant pain; M54.9 Dorsalgia, unspecified; I49.8 Other specified cardiac arrhythmias; Z93.2 Ileostomy status | CPT/HCPCS: A0425; A0429 ==

== ENCOUNTER 2024-01-04 17:22 | Emergency (ER) | payer MEDICARE ==
--- NOTE | 2024-01-04 17:31 | ED Physician Documentation ---
PD HPI ABD PAIN - Stated complaint Stated Complaint: ABD PX - History obtained from History obtained from: Patient - Additional information Additional information: 83-year-old gentleman with history of Crohn's. Had an ileostomy with total c olectomy for same in the late 60s. Currently on adalimumab. Also has a history of CKD. At noon today he developed dull lower abdominal pain radiating to the back with occasional spasms. He notes firmer than normal ileostomy output today. Denies nausea. No fevers. PD PAST MEDICAL HISTORY - Past Medical History Cardiovascular: Hypertension, Atrial fibrillation Respiratory: None Endocrine/Autoimmune: HyPOthyroidism GI: Crohn's disease - Past Surgical History Past Surgical History: Yes General: Bowel surgery, Other (bowel resection with ileostomy (due to complications of Crohns disease)) - Present Medications Home Medications: Ambulatory Orders Medication Instructions Recorded Confirmed [place]-3 Fatty Acids/Fish Oil [Fish 1,000 mg PO BID 12/10/13 01/04/24 Oil 1,000 mg Capsule] Levothyroxine [Synthroid] 100 mcg PO DAILY 12/05/15 01/04/24 Adalimumab-Atto [Amjevita(Cf)] 40 mg SUBQ OAW 10/22/23 01/04/24 Famotidine [Pepcid] 20 mg PO DAILY PRN 10/22/23 10/22/23 Ferrous Sulfate [Feosol] 325 mg PO DAILY 10/22/23 10/22/23 Neutra-Phos [K-Phos Neutral] 500 mg PO TID 10/22/23 01/04/24 Wheat Dextrin [Benefiber] 1 packet PO DAILY 10/22/23 10/22/23 Cyanocobalamin [Vitamin B-12] 1,000 mcg PO DAILY tab 10/24/23 01/04/24 Multivitamin [Theragran] 1 tab PO DAILYWM tab 10/24/23 01/04/24 Erythromycin Ophth Oint [Ilotycin 5 mg TOP TID 01/04/24 01/04/24 Ophth Oint] Sodium Bicarbonate 650 mg PO TID 01/04/24 01/04/24 - Allergies Allergies/Adverse Reactions: Allergies Allergy/AdvReac Type Severity Reaction Status Date / Time aspirin AdvReac Unknown Verified 01/04/24 17:34 NSAIDS (Non-Steroidal AdvReac Unknown Verified 01/04/24 17:34 Anti-Inflamma - Social History Does the pt smoke?: Yes Smoking Status: Current every day smoker Does the pt drink ETOH?: Yes Does the pt have substance abuse?: No - Immunizations Immunizations are current?: Yes - POLST Patient has POLST: No PD ED PE NORMAL - Vitals Vital signs reviewed: Yes - General General: Alert and oriented X 3, No acute distress - Cardiac Cardiac: RRR, No murmur - Respiratory Respiratory: No respiratory distress, Clear bilaterally - Abdomen Abdomen: Other (Hyperactive bowel sounds with moderate tenderness without surgical signs in the lower abdomen. Ileostomy just to the right and inferior to the umbilicus.) - Neuro Neuro: Alert and oriented X 3, Normal speech Results - Vitals Vitals: Vital Signs - 24 hr 01/04/24 01/04/24 01/04/24 17:30 17:33 19:33 Temperature 36.6 C Heart Rate 64 64 70 Respiratory 19 19 15 Rate Blood Pressure 148/72 H 148/72 H 177/89 H O2 Saturation 98 98 99 01/04/24 21:00 Temperature Heart Rate 99 Respiratory 18 Rate Blood Pressure 172/155 H O2 Saturation 98 Oxygen O2 Source Room air - Labs Labs: Laboratory Tests 01/04/24 01/04/24 17:30 17:30 WBC 11.3 H RBC 4.24 L Hgb 13.1 L Hct 40.4 L MCV 95.3 H MCH 30.9 MCHC 32.4 RDW 12.4 Plt Count 294 MPV 10.1 Neut # (Auto) 9.6 H Lymph # (Auto) 1.0 L [place] # (Auto) 0.6 Eos # (Auto) 0.0 Baso # (Auto) 0.0 Absolute Nucleated RBC 0.00 Nucleated RBC % 0.0 Sodium 136 Potassium 4.2 Chloride 106 Carbon Dioxide 20 L Anion Gap 10.0 BUN 36 H Creatinine 2.1 H Estimated GFR (MDRD) 30 L Glucose 100 Calcium 9.5 Total Bilirubin 0.4 AST 25 ALT 20 Alkaline Phosphatase 83 Total Protein 7.1 Albumin 3.7 Globulin 3.4 Albumin/Globulin Ratio 1.1 - Rads (name of study) CT a/p Relevant Findings:: Final report received, EMP independent interpretation of test PD Medical Decision Making - ED course ED course: 83-year-old gentleman with the above abdominal history presents with lower abdominal pain without nausea or vomiting. CT concerning for SBO, but this does not fit the clinical picture as he has hyperactive bowel sounds, drink contrast here for the CT with no vomiting and had ostomy output. Discussed case by phone with our surgeon, Dr. Blackwell who agrees that this is likely enteritis and patient would probably benefit from a clear liquid diet for the next 24 hours and follow-up with his guzzler builder. CBC, CMP were unremarkable save mild anemia and leukocytosis with chronic kidney disease. Because of the chronic kidney disease I asked our computer systems technician only to do half dose IV contrast. Departure - Departure Disposition: Home, Self Care Clinical Impression: Enteritis, Crohn's disease Condition: Stable Record reviewed to determine appropriate education?: Yes Instructions: ED Inflam Bowel Disease Crohn, ED Diet Clear Liquid Comments: Vinny you are seen today for abdominal pain, the CT showed some dilated small bowel loops. Clinically this is not consistent with a small bowel obstruction as you have no vomiting and have ostomy output. Lab work shows mild anemia with mild elevation in white count and chronic renal insufficiency. Try to follow-up with your guzzler builder this coming week, call Saturday for an appointment. Return if worse or if not better over the next 24 hours or so. Especially if you were to start vomiting. Recommend a clear liquid diet for the next 24 hours. NOTE TO HIM, PLEASE COPY TODAYS RECORDS TO BOTH: LESLY GUEVARA MD, CARDIOTHORACIC SURGERY AT [facility] FAX AND Wilbur Martinez MD [facility] READ: IMPRESSION: Multiple loops of dilated small bowel. Although no focal transition point identified findings may represent small bowel obstruction. Right lower quadrant quadrant colostomy.
[2024-01-04] MEDS ORDERED: DIATRIZOATE MEGLU/DIATRIZO SOD 30 ML BOTTLE PO ONE (17:33)
[2024-01-04] MEDS ORDERED: iohexoL-300 100 ML VIAL ONE (17:33)
[2024-01-04 17:39] LABS: BASOPHILS % (AUTO) 0.3 %; EOSINOPHILS % (AUTO) 0.1 %; HCT - HEMATOCRIT 40.4 % (42.0-52.0); HGB - HEMOGLOBIN 13.1 g/dL (14.0-18.0); LYMPHOCYTES % (AUTO) 8.9 %; MEAN CORPUSCULAR HEMOGLOBIN 30.9 pg (27.0-31.0); MEAN CORPUSCULAR HGB CONC 32.4 g/dL (32.0-36.0); MEAN CORPUSCULAR VOLUME 95.3 fL (80.0-94.0); MEAN PLATELET VOLUME 10.1 fL (7.4-11.4); MONOCYTES # (AUTO) 0.6 10^3/uL (0.0-1.0); MONOCYTES % (AUTO) 5.3 %; NEUTROPHILS # (AUTO) 9.6 10^3/uL (1.5-6.6); PLT - PLATELET COUNT 294 10^3/uL (130-450); RED BLOOD COUNT 4.24 10^6/uL (4.70-6.10); RED CELL DISTRIBUTION WIDTH 12.4 % (12.0-15.0); WHITE BLOOD COUNT 11.3 x10^3/uL (4.8-10.8)
[2024-01-04] MEDS: HYDROmorphone 1 MG/ML CARPUJECT IVP STA (17:46)
[2024-01-04 17:57] LABS: ALBUMIN 3.7 g/dL (3.2-5.5); ALBUMIN/GLOBULIN RATIO 1.1 (1.0-2.2); BILIRUBIN,TOTAL 0.4 mg/dL (0.2-1.0); CALCIUM 9.5 mg/dL (8.5-10.3); CREATININE 2.1 mg/dL (0.6-1.3); POTASSIUM 4.2 mmol/L (3.5-4.5); TOTAL PROTEIN 7.1 g/dL (6.4-8.9)
[2024-01-04] MEDS: DIATRIZOATE MEGLU/DIATRIZO SOD 30 ML BOTTLE PO ONE (18:40)
[2024-01-04] MEDS: iohexoL-300 100 ML VIAL IVP ONE (18:40)
[2024-01-04] MEDS: SODIUM CHLORIDE 0.9% 1,000 ML IV STA (18:53)
--- NOTE | 2024-01-04 20:44 | CT Report ---
PROCEDURE: Abdomen/Pelvis W INDICATIONS: IV +PO, abd pain, wait for labs, but can drink now CONTRAST: 50ml omni 300 (Half dose per ordering provider due to poor labs) TECHNIQUE: After the administration of intravenous contrast, a CT scan of the abdomen and pelvis was performed. Images were recorded and evaluated at appropriate window settings. Reformats: coronal and sagittal. F or radiation dose reduction, the following was used: automated exposure control, adjustment of mA and /or kV according to patient size. COMPARISON: CT abdomen pelvis with contrast 02/27/2018. FINDINGS: Image quality: Diagnostic. Lower chest: Dependent atelectasis. Liver: No solid mass. Gallbladder and biliary tree: Spleen: No splenomegaly. Pancreas: No pancreatic ductal dilation. Adrenals: No adrenal nodule. Kidneys and ureters: No hydronephrosis. Stable bilateral large renal cysts. No renal cystic lesion wh ich requires follow up. No solid mass. Stomach, bowel and peritoneum: Redemonstration of right lower quadrant colostomy. The stomach is dist ended. There are multiple loops of dilated small bowel predominantly in the right hemiabdomen and low er pelvis. There is no focal transition point identified. There is smooth tapering of small bowel maria t iber in the right lower quadrant. No pneumoperitoneum or ascites Lymph nodes: No central or retroperitoneal adenopathy. Vessels: No infrarenal aortic aneurysm. Aortobiiliac vascular calcifications. PELVIS Reproductive organs: Unremarkable. Bladder: No abnormal wall thickening, accounting for underdistention. Pelvic lymph nodes: No pelvic adenopathy by size criteria. Bones: No aggressive osseous abnormality. Other: No significant ventral or inguinal hernia. IMPRESSION: Multiple loops of dilated small bowel. Although no focal transition point identified findings may rep resent small bowel obstruction. Right lower quadrant quadrant colostomy. Reviewed by: Candace Cole MD on 01/04/2024 8:43 PM PST Approved by: Candace Cole MD on 01/04/2024 8:43 PM PST Station ID: [id number]
[2024-01-04 21:28] VITALS: BP 167/95; O2SAT 99
== END 2024-01-04 21:36 | disposition home or self-care (01) ==
LOC: EDUNIT# → ED 17:22
DX: K52.9 Noninfective gastroenteritis and colitis, unspecified (principal); K50.90 Crohn's disease, unspecified, without complications; Z93.2 Ileostomy status; D64.9 Anemia, unspecified; D72.829 Elevated white blood cell count, unspecified; F17.200 Nicotine dependence, unspecified, uncomplicated
CPT/HCPCS: 36415; 74177; 80053; 85025; 96374; 99284; J1170; Q9963; Q9967

== ENCOUNTER 2024-01-05 08:22 | Observation (INO) | payer MEDICARE ==
--- NOTE | 2024-01-05 08:50 | ED Physician Documentation ---
PD HPI ABD PAIN - Stated complaint Stated Complaint: VOMITTING - Chief complaint Chief Complaint: Abd Pain - History obtained from History obtained from: Patient - History of Present Illness Timing - onset: How many days ago (1-2) Timing - duration: Days (1-2) Timing - details: Abrupt onset, Still present (had improved yesterday in ER with IV fluids and meds. Pain not as bad last night but still present. Also now with vomiting every 1-2 hours overnight. Feeling more bloated.) Quality: Cramping, Aching, Pain Location: All over / everywhere Radiation: No: Chest, Lower back Improved by: Vomiting (for awhile, but then returns.) Worsened by: Eating. No: Breathing, Palpation Associated symptoms: Nausea, Vomiting (overnight last night into this morning every 1-2 hours.) Recently seen: Emergency Dept (seen yesterday and workup had concern for small bowel obstruction (CT finidng and exam). However not vomiting and less pain with meds, so discharged with return precautions, guillermo of onset vomiting/ increased pain. So he returned today.) Review of Systems Constitutional: reports: Chills. denies: Fever Nose: denies: Rhinorrhea / runny nose, Congestion Throat: denies: Sore throat Respiratory: denies: Cough GI: reports: Abdominal Pain, Abdominal Swelling, Nausea, Vomiting, Constipation (minimal to no output from ostomy overnight to today; had had much less than usual yesterday.). denies: Diarrhea PD PAST MEDICAL HISTORY - Past Medical History Past Medical History: Yes Cardiovascular: Hypertension, Atrial fibrillation Respiratory: None Neuro: None Endocrine/Autoimmune: HyPOthyroidism GI: Crohn's disease : Renal insuffiency HEENT: None Psych: None Musculoskeletal: None - Past Surgical History Past Surgical History: Yes General: Bowel surgery, Other - Present Medications Home Medications: Ambulatory Orders Medication Instructions Recorded Confirmed [place]-3 Fatty Acids/Fish Oil [Fish 1,000 mg PO BID 12/10/13 01/05/24 Oil 1,000 mg Capsule] Levothyroxine [Synthroid] 100 mcg PO DAILY 12/05/15 01/05/24 Adalimumab-Atto [Amjevita(Cf)] 40 mg SUBQ OAW 10/22/23 01/05/24 Ferrous Sulfate [Feosol] 325 mg PO DAILY 10/22/23 01/05/24 Neutra-Phos [K-Phos Neutral] 750 mg PO TID 10/22/23 01/05/24 Wheat Dextrin [Benefiber] 1 packet PO DAILY 10/22/23 01/05/24 Cyanocobalamin [Vitamin B-12] 1,000 mcg PO DAILY tab 10/24/23 01/05/24 Multivitamin [Theragran] 1 tab PO DAILYWM tab 10/24/23 01/05/24 Sodium Bicarbonate 650 mg PO TID 01/04/24 01/05/24 Cholecalciferol [Vitamin D3] 25 mcg PO DAILY 01/05/24 01/05/24 Meclizine HCl 25 mg PO Q6H PRN 01/05/24 01/05/24 - Allergies Allergies/Adverse Reactions: Allergies Allergy/AdvReac Type Severity Reaction Status Date / Time aspirin AdvReac Unknown Verified 01/05/24 08:37 NSAIDS (Non-Steroidal AdvReac Unknown Verified 01/05/24 08:37 Anti-Inflamma - Social History Does the pt smoke?: Yes Smoking Status: Current every day smoker Does the pt drink ETOH?: Yes Does the pt have substance abuse?: No - Immunizations Immunizations are current?: Yes - POLST Patient has POLST: No PD ED PE NORMAL - Vitals Vital signs reviewed: Yes - General General: Alert and oriented X 3, Well developed/nourished - Cardiac Cardiac: No murmur. No: RRR (irregular but rate controlled. ) - Respiratory Respiratory: No respiratory distress, Clear bilaterally - Abdomen Abdomen: Soft, Non distended, Other (not notably distended nor tense. However with firmness and some fullness. Generally tender but most mid abd. Ileostomy noted lower left. Mild skin redness lower left under bag. Else skin clear. ). No: Normal bowel sounds (increased notably) - Back Back: No CVA TTP - Derm Derm: Normal color, Warm and dry Results - Vitals Vitals: Vital Signs - 24 hr 01/05/24 01/05/24 08:34 11:18 Temperature 36.1 C L Heart Rate 73 90 Respiratory 20 18 Rate Blood Pressure 153/77 H 163/87 H O2 Saturation 98 98 Oxygen O2 Source Room air - Labs Labs: Laboratory Tests 01/05/24 01/05/24 09:47 10:20 WBC 12.0 H RBC 4.32 L Hgb 13.3 L Hct 40.1 L MCV 92.8 MCH 30.8 MCHC 33.2 RDW 12.3 Plt Count 310 MPV 10.5 Neut # (Auto) 9.6 H Lymph # (Auto) 1.2 L [place] # (Auto) 1.1 H Eos # (Auto) 0.0 Baso # (Auto) 0.0 Absolute Nucleated RBC 0.00 Nucleated RBC % 0.0 Sodium 138 Potassium 3.7 Chloride 105 Carbon Dioxide 23 Anion Gap 10.0 BUN 35 H Creatinine 1.9 H Estimated GFR (MDRD) 34 L Glucose 92 Calcium 9.2 Magnesium 1.6 L Total Bilirubin 0.7 AST 25 ALT 20 Alkaline Phosphatase 84 Total Protein 6.7 Albumin 3.6 Globulin 3.1 Albumin/Globulin Ratio 1.2 Lipase 33 PD Medical Decision Making - ED course Complexity details: reviewed old records (reviewed CT scan images and report from yesterday. Also ER report. ), reviewed results (WBC elevated at 11K. Creatinine about baseline or slightly better at 1.9. Lytes withut notable abnormality. I did not see value of repeating CT scan. Will ask surgery if would like.), re-evaluated patient (improved pain and nausea with IV meds. ), considered differential, d/w patient, d/w marketing operations consultant (inital called Surgery to review. Dr. Muhammad had verbally consulted yesterday. He states would be nonsurgical approach. Defer to hospitalist, whom I did then contact. ) ED course: The patient has Crohn's disease and ileostomy. He was having abdominal pain and cramps with less output from his ostomy. Seen yesterday in the ER with CT scan showing concern for bowel obstruction pattern. However he was not having much distention and no vomiting and was trialed going home with caution to return if vomiting or increased symptoms. He states he has vomited 3-4 times through the night with a feeling of increased cramps and pain. He has had some slight output from his ostomy but not as much as usual. No noted blood. He returned as directed with these increased symptoms. I did talk with 's office on-call for surgery who would defers treatment to the hospitalist as very unlikely to be a surgical solution. I talked with the hospitalist to will see the patient and continue care. Departure - Departure Disposition: ED Place in Observation Clinical Impression: Abdominal pain, Vomiting, Crohn's disease, Small bowel obstruction Condition: Stable Record reviewed to determine appropriate education?: Yes Discharge Date/Time: 01/05/24 13:27
[2024-01-05] MEDS: HYDROmorphone 0.5 MG/0.5 ML SYRINGE IVP STA (09:49)
[2024-01-05] MEDS: ONDANSETRON 4 MG/2 ML VIAL IVP STA (09:49)
[2024-01-05] MEDS: SODIUM CHLORIDE 0.9% 1,000 ML IV STA (09:49)
[2024-01-05] MEDS: DEXAMETHASONE 10 MG/ML VIAL IVP STA (09:50)
[2024-01-05 10:04] LABS: BASOPHILS % (AUTO) 0.2 %; EOSINOPHILS % (AUTO) 0.1 %; HCT - HEMATOCRIT 40.1 % (42.0-52.0); HGB - HEMOGLOBIN 13.3 g/dL (14.0-18.0); LYMPHOCYTES # (AUTO) 1.2 10^3/uL (1.5-3.5); LYMPHOCYTES % (AUTO) 10.2 %; MEAN CORPUSCULAR HEMOGLOBIN 30.8 pg (27.0-31.0); MEAN CORPUSCULAR HGB CONC 33.2 g/dL (32.0-36.0); MEAN CORPUSCULAR VOLUME 92.8 fL (80.0-94.0); MEAN PLATELET VOLUME 10.5 fL (7.4-11.4); MONOCYTES # (AUTO) 1.1 10^3/uL (0.0-1.0); NEUTROPHILS # (AUTO) 9.6 10^3/uL (1.5-6.6); NEUTROPHILS % (AUTO) 80.1 %; PLT - PLATELET COUNT 310 10^3/uL (130-450); RED BLOOD COUNT 4.32 10^6/uL (4.70-6.10); RED CELL DISTRIBUTION WIDTH 12.3 % (12.0-15.0)
[2024-01-05 10:36] LABS: ALBUMIN 3.6 g/dL (3.2-5.5); ALBUMIN/GLOBULIN RATIO 1.2 (1.0-2.2); BILIRUBIN,TOTAL 0.7 mg/dL (0.2-1.0); CALCIUM 9.2 mg/dL (8.5-10.3); CREATININE 1.9 mg/dL (0.6-1.3); MAGNESIUM 1.6 mg/dL (1.7-2.3); POTASSIUM 3.7 mmol/L (3.5-4.5); TOTAL PROTEIN 6.7 g/dL (6.4-8.9)
[2024-01-05] MEDS ORDERED: ONDANSETRON 4 MG/2 ML VIAL IVP PRN (13:05)
[2024-01-05] MEDS ORDERED: PROCHLORPERAZINE 10 MG/2 ML VIAL IVP PRN (13:05)
[2024-01-05] MEDS ORDERED: ACETAMINOPHEN 325 MG TABLET PO PRN (13:05)
--- NOTE | 2024-01-05 13:08 | HISTORY & PHYSICAL EXAMINATION ---
Chief Complaint - Chief Complaint Chief Complaint: N/V History of Present Illness - Admitted From Admitted From:: ED - History Obtained From Records Reviewed: Yes History obtained from: ED provider and the patient - History of Present Illness HPI Comment/Other: This is an 83-year-old male with a history of hypothyroidism, CKD, and Crohn's disease on a Mab treatment, who underwent a total colectomy with ileostomy done about 50 years ago. He is followed by Manager Adult Dr Martinez, in [place], with [place]. He was just seen by him on 12/31/23 (5 days ago) and everything was stable, per the pt. He presented to the ER yesterday with crampy abdominal pain and a change in the quality of his ileostomy output from loose to more firm. He had abdominal imaging done that showed dilated loops of small bowel. Since he had no nausea or vomiting, he was discharged home with an impression that he had enteritis, and was advised to be on a clear liquid diet for 24 hrs. He was told to come back if vomiting occurred. He did have 3-4 episodes of emesis overnight and returned back to the ER this morning. He denied any coffee grounds. He still has slight output from his ileostomy. Imaging was not repeated. He has mild tenderness and abdominal distention on exam. WBC is mildly elevated at 12, it was 11 yesterday. No lactic acid was done. He has no fever or hypotension. The ED spoke to the general surgeon who deferred the case to be admitted to the Hospitalist team. The ED provider then spoke to me and the patient will be placed in Observation for managing enteritis versus partial small bowel obstruction. History - Past Medical History Cardiovascular: reports: Hypertension, Atrial fibrillation Respiratory: reports: None Neuro: reports: None Endocrine/Autoimmune: reports: HyPOthyroidism GI: reports: Crohn's disease : reports: Renal insuffiency HEENT: reports: None Psych: reports: None Musculoskeletal: reports: None MRSA Hx?: No - Past Surgical History General: reports: Bowel surgery, Other - Family & Social History Living arrangement: At home Living Situation: Alone - POLST Patient has POLST: No Meds/Allgy - Home Medications Home Medications: Ambulatory Orders Medication Instructions Recorded Confirmed [place]-3 Fatty Acids/Fish Oil [Fish 1,000 mg PO BID 12/10/13 01/05/24 Oil 1,000 mg Capsule] Levothyroxine [Synthroid] 100 mcg PO DAILY 12/05/15 01/05/24 Adalimumab-Atto [Amjevita(Cf)] 40 mg SUBQ OAW 10/22/23 01/05/24 Ferrous Sulfate [Feosol] 325 mg PO DAILY 10/22/23 01/05/24 Neutra-Phos [K-Phos Neutral] 750 mg PO TID 10/22/23 01/05/24 Wheat Dextrin [Benefiber] 1 packet PO DAILY 10/22/23 01/05/24 Cyanocobalamin [Vitamin B-12] 1,000 mcg PO DAILY tab 10/24/23 01/05/24 Multivitamin [Theragran] 1 tab PO DAILYWM tab 10/24/23 01/05/24 Sodium Bicarbonate 650 mg PO TID 01/04/24 01/05/24 Cholecalciferol [Vitamin D3] 25 mcg PO DAILY 01/05/24 01/05/24 Meclizine HCl 25 mg PO Q6H PRN 01/05/24 01/05/24 - Allergies Allergies/Adverse Reactions: Allergies Allergy/AdvReac Type Severity Reaction Status Date / Time aspirin AdvReac Unknown Verified 01/05/24 08:37 NSAIDS (Non-Steroidal AdvReac Unknown Verified 01/05/24 08:37 Anti-Inflamma Review of Systems - Gastrointestinal Gastrointestinal: reports: Change in bowel habits, Nausea, Vomiting - All Other Systems All Other Systems: reports: Reviewed and negative Exam - Vital Signs Reviewed Vital Signs: Yes Vital Signs: Vital Signs x48h Temp Pulse Resp BP Pulse Ox 01/05/24 11:18 90 18 163/87 H 98 01/05/24 08:34 36.1 C L 73 20 153/77 H 98 - Physical Exam General Appearance: positive: No acute distress, Alert Eyes Bilateral: positive: EOMI, No lid inflammation ENT: positive: ENT inspection nml, No signs of dehydration Neck: positive: Nml inspection, No JVD Respiratory: positive: No respiratory distress, Breath sounds nml Cardiovascular: positive: Regular rate & rhythm, No murmur Abdomen: positive: Non-tender, No organomegaly, Nml bowel sounds, No distention Conclusion/Plan - Problem List (1) N&V (nausea and vomiting) Conclusion/Plan: The impression is that this is from partial small bowel obstruction or ent eritis. He received pain meds and anti-emetics in ER and has not had a recurrence of sx since then Plan: If the N/V should become incessant then ng tube to be inserted, placed to suction Bowel rest with a diet being clear liquid diet Cont IV antiemetics and pain meds prn Cont IV fluids (2) Partial small bowel obstruction Conclusion/Plan: The patient still has slight output through his ileostomy, therefore he is not completely obstructed. Plan: Bowel rest, IV fluids and antiemetics as above General surgery consult requested (3) Crohn's disease Conclusion/Plan: As per history. He is followed by Manager [facility] Dr Martinez, in [place], with [place]. He was just seen by him on 12/31/23 (5 days ago) and everything was stable, per the pt. Plan: I await his reconciled med list to resume necessary medications while he is here. Will contact his GI specialist for any recommendations (4) Acute kidney injury superimposed on CKD Conclusion/Plan: His usual creat is 1.5, and today is 1.9, consistent with some dehydration from the N/V Plan: Cont iv fluids Avoid nephrotoxins Follow BMP daily - Lab Results Fish Bones: 01/05/24 09:47 01/05/24 10:20 - Diagnostic Imaging Results Diagnostic Imaging Results: positive: Final report reviewed
[2024-01-05] MEDS: DEXTROSE 5%-0.9% NACL 1,000 ML IV SCH (13:39)
[2024-01-05] MEDS: SODIUM CHLORIDE FLUSH 0.9% 10 ML SYRINGE IVP PRN (13:40)
--- NOTE | 2024-01-05 14:49 | PHARMACY PROGRESS NOTE ---
- Best Possible Medication History Admit Date and Time: 01/05/24 4494 Processed by: Pharmacy Medications reviewed in ED?: Yes Medication History completed: Yes Patient Interview: Completed Secondary Source(s): Written medication list, Insurance records As the person ultimately responsible for medication therapy, providers are able to order a medication from an existing home medication list in [facility] via the "Reconcile Routine" prior to Confirmation of that medication by desktop support engineer. Such practice is discouraged except when the physician, in their clinical judgment, deems that a medical need exists for a medication without regard to previous use.
--- NOTE | 2024-01-05 15:19 | CONSULTATION NOTE ---
Referring Provider Name of Referring Provider:: Dr. Morales Consult Date: 01/05/24 Chief Complaint - Chief Complaint Chief Complaint: Evaluation of possible small bowel obstruction History of Present Illness - Admitted From Admitted From:: ED - History Obtained From Records Reviewed: Yes History obtained from: Patient primarily - chart secondarily Exam Limitations: None - History of Present Illness HPI Comment/Other: This very pleasant 83 year old male is evaluated in Room 2201 at the request of Dr. Morales after the CT scan mentioned "small bowel obstruction." The patient had a total proctocolectomy for what was initially thought to be ulcerative colitis but ultimately proved to be Crohns disease about 50 years ago. He was maintained on steroids at that time resulting in "growing hair in weird places" until the when he was placed on Azathioprine with excellent results. 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 He states that he has never required steroids while on the MABs. This episode started yesterday around noon and progressed to the point where the abdominal pain and distention resulted in a visit to our ED. He was given fluids and oral contrast and told to return if he did not improve. He had several bouts of emesis overnight and represented to our ED. This morning he stated that he passed a solid stool out of his ostomy (which he states is very unusual) and afterwards his ileostomy started functioning normally. He passed more liquid thn usual (consistent with the oral contrast he received). He is now in bed exhausted after not sleeping last night but otherwise feeling quite normal and is looking forward to oral intake. As an aside several member of his family have Crohns (which is consistent with genetic patterns). History - Past Medical History Cardiovascular: reports: Hypertension, Atrial fibrillation Respiratory: reports: None Neuro: reports: None Endocrine/Autoimmune: reports: HyPOthyroidism GI: reports: Crohn's disease : reports: Renal insuffiency HEENT: reports: None Psych: reports: None Musculoskeletal: reports: None MRSA Hx?: No - Past Surgical History General: reports: Bowel surgery, Other - POLST Patient has POLST: No Meds/Allgy - Home Medications Home Medications: Ambulatory Orders Medication Instructions Recorded Confirmed [place]-3 Fatty Acids/Fish Oil [Fish 1,000 mg PO BID 12/10/13 01/05/24 Oil 1,000 mg Capsule] Levothyroxine [Synthroid] 100 mcg PO DAILY 12/05/15 01/05/24 Adalimumab-Atto [Amjevita(Cf)] 40 mg SUBQ OAW 10/22/23 01/05/24 Ferrous Sulfate [Feosol] 325 mg PO DAILY 10/22/23 01/05/24 Neutra-Phos [K-Phos Neutral] 750 mg PO TID 10/22/23 01/05/24 Wheat Dextrin [Benefiber] 1 packet PO DAILY 10/22/23 01/05/24 Cyanocobalamin [Vitamin B-12] 1,000 mcg PO DAILY tab 10/24/23 01/05/24 Multivitamin [Theragran] 1 tab PO DAILYWM tab 10/24/23 01/05/24 Sodium Bicarbonate 650 mg PO TID 01/04/24 01/05/24 Cholecalciferol [Vitamin D3] 25 mcg PO DAILY 01/05/24 01/05/24 Meclizine HCl 25 mg PO Q6H PRN 01/05/24 01/05/24 - Allergies Allergies/Adverse Reactions: Allergies Allergy/AdvReac Type Severity Reaction Status Date / Time aspirin AdvReac Unknown Verified 01/05/24 08:37 NSAIDS (Non-Steroidal AdvReac Unknown Verified 01/05/24 08:37 Anti-Inflamma Review of Systems - Constitutional Constitutional: reports: Fatigue - Eyes Eyes: denies: Pain - Ears, Nose & Throat Ears, Nose & Throat: denies: Ear pain - Cardiovascular Cariovascular: denies: Irregular heart rate, Palpitations, Chest pain - Respiratory Respiratory: denies: Cough, Sputum production, Wheezing - Gastrointestinal Gastrointestinal: denies: Abdominal pain, Abdominal distention, Constipation, Nausea, Vomiting - Neurological Neurological: denies: General weakness Exam - Vital Signs Reviewed Vital Signs: Yes Vital Signs: Vital Signs x48h Temp Pulse Pulse Resp BP BP Pulse Ox 01/05/24 13:38 37 C 96 18 165/88 H 97 01/05/24 13:23 86 20 148/81 H 98 01/05/24 11:18 90 18 163/87 H 98 01/05/24 08:34 36.1 C L 73 20 153/77 H 98 - Physical Exam General Appearance: positive: No acute distress, Alert Eyes Bilateral: positive: No lid inflammation, Conjunctivae nml, No scleral icterus ENT: positive: Dry mucous membranes Neck: positive: Trachea midline Respiratory: positive: Chest non-tender, No respiratory distress, Breath sounds nml Cardiovascular: positive: Regular rate & rhythm, No murmur, No gallop Abdomen: positive: Non-tender, No organomegaly, Nml bowel sounds, No distention, Other (Ileostomy in RLQ productive - I did not remove the bag.) Rectal: positive: Other (No rectum.) Skin: positive: Color nml, No rash, Warm, Dry Extremities: positive: Non-tender, Full ROM, Nml appearance Neurologic/Psychiatric: positive: Oriented x3, CN's nml (2-12), Motor nml, Sensation nml, Mood/affect nml Conclusion and Plan - Lab Results Laboratory Results 01/05/24 10:20: Sodium 138, Potassium 3.7, Chloride 105, Carbon Dioxide 23, Anion Gap 10.0, BUN 35 H, Creatinine 1.9 H, Estimated GFR (MDRD) 34 L, Glucose 92, Calcium 9.2, Magnesium 1.6 L, Total Bilirubin 0.7, AST 25, ALT 20, Alkaline Phosphatase 84, Total Protein 6.7, Albumin 3.6, Globulin 3.1, Albumin/Globulin Ratio 1.2, Lipase 33 01/05/24 09:47: WBC 12.0 H, RBC 4.32 L, Hgb 13.3 L, Hct 40.1 L, MCV 92.8, MCH 30.8, MCHC 33.2, RDW 12.3, Plt Count 310, MPV 10.5, Neut # (Auto) 9.6 H, Lymph # (Auto) 1.2 L, [place] # (Auto) 1.1 H, Eos # (Auto) 0.0, Baso # (Auto) 0.0, Absolute Nucleated RBC 0.00, Nucleated RBC % 0.0 - Diagnostic Imaging Results Diagnostic Imaging Results: positive: Final report reviewed - Diagnosis Diagnosis: Transient bowel dysfunction due to Crohns disease (functional obstruction rather than structural obstruction) - Consultation Note Consultation Note: This exceedingly pleasant 83 year old gentleman has no surgical issues. This episode resolved with the passage of firm stool out of his ostomy. If this is an exacerbation of his Crohns disease it is occuring exactly at the place where it usually occurs - the distal ileum. My recommendation is generous hydration to include po intake and definitely have the patient follow up with his snow removing supervisor this week and preferably tomorrow to see whether his medications need to be changed or adjusted. There is no indication for surgery and the patient states that he would not allow it. I am appreciative of the opportunity to meet this gentleman and participate in his care. Although an hour was spent on this consultation I believe an appropriate code is CPT 57142
[2024-01-05] MEDS: SODIUM CHLORIDE FLUSH 0.9% 10 ML SYRINGE IVP SCH (16:15)
[2024-01-05] MEDS: FAMOTIDINE 20 MG/2 ML VIAL IVP SCH (21:56)
[2024-01-06 08:31] VITALS: O2SAT 98
[2024-01-06] MEDS: LEVOTHYROXINE 100 MCG TABLET PO SCH (08:38)
[2024-01-06 09:22] LABS: BASOPHILS % (AUTO) 0.1 %; HCT - HEMATOCRIT 35.9 % (42.0-52.0); HGB - HEMOGLOBIN 11.8 g/dL (14.0-18.0); LYMPHOCYTES # (AUTO) 1.3 10^3/uL (1.5-3.5); MEAN CORPUSCULAR HEMOGLOBIN 31.3 pg (27.0-31.0); MEAN CORPUSCULAR HGB CONC 32.9 g/dL (32.0-36.0); MEAN CORPUSCULAR VOLUME 95.2 fL (80.0-94.0); MEAN PLATELET VOLUME 10.3 fL (7.4-11.4); MONOCYTES # (AUTO) 0.8 10^3/uL (0.0-1.0); MONOCYTES % (AUTO) 6.7 %; NEUTROPHILS # (AUTO) 9.3 10^3/uL (1.5-6.6); NEUTROPHILS % (AUTO) 81.8 %; PLT - PLATELET COUNT 271 10^3/uL (130-450); RED BLOOD COUNT 3.77 10^6/uL (4.70-6.10); RED CELL DISTRIBUTION WIDTH 12.5 % (12.0-15.0); WHITE BLOOD COUNT 11.4 x10^3/uL (4.8-10.8)
[2024-01-06 09:35] LABS: CALCIUM 8.5 mg/dL (8.5-10.3); CREATININE 1.6 mg/dL (0.6-1.3); MAGNESIUM 1.5 mg/dL (1.7-2.3); POTASSIUM 3.6 mmol/L (3.5-4.5)
[2024-01-06] MEDS: NEUTRA-PHOS 250 MG TABLET PO SCH (10:54)
[2024-01-06 12:07] VITALS: BP 123/67
[2024-01-06] MEDS: SODIUM BICARBONATE 650 MG TABLET PO SCH (12:11)
--- NOTE | 2024-01-06 14:10 | Discharge Plan ---
Discharge Plan Problem Reviewed?: Yes Disposition: Home, Self Care Condition: Stable Diet: Soft Activity Restrictions: Activity as Tolerated Shower Restrictions: No Driving Restrictions: No Health Concerns: You were hospitalized to manage abnormal bowel movement through your ileostomy. After you passed some hard stool, the nausea, vomiting and abdominal pain resolv ed and you your stool output has normalized. You are therefore being discharged home today. Please resume all your usual medications and management and stay well-hydrated. Please see your gastroenterology specialist and discusse this event. Plan of Treatment: As above. Care Goals: Improvement in symptoms and stabilization are the goals. Assessment: The patient understands and is agreeable with the plan. No Smoking: If you smoke, Please STOP! Call for help.
--- NOTE | 2024-01-06 14:12 | DISCHARGE SUMMARY ---
Discharge Summary Admit Date: 01/05/24 Discharge Date: 01/06/24 Discharging Provider: Dr Claudia Morales Primary Care Provider: Dr Edwin Reyes Code Status: Attempt Resuscitation Condition at Discharge: Stable Discharge Disposition: 01 Home, Self Care - HPI History of Present Illness: This is an 83-year-old male with a history of hypothyroidism, CKD, and Crohn's disease on a Mab treatment, who underwent a total colectomy with ileostomy done about 50 years ago. He is followed by Nursery Worker Dr Martinez, in [place], with Morrice. He was just seen by him on 12/31/23 (5 days ago) and everything was stable, per the pt. He presented to the ER yesterday with crampy abdominal pain and a change in the quality of his ileostomy output from loose to more firm. He had abdominal imaging done that showed dilated loops of small bowel. Since he had no nausea or vomiting, he was discharged home with an impression that he had enteritis, and was advised to be on a clear liquid diet for 24 hrs. He was told to come back if vomiting occurred. He did have 3-4 episodes of emesis overnight and returned back to the ER this morning. He denied any coffee grounds. He still has slight output from his ileostomy. Imaging was not repeated. He has mild tenderness and abdominal distention on exam. WBC is mildly elevated at 12, it was 11 yesterday. No lactic acid was done. He has no fever or hypotension. The ED spoke to the general surgeon who deferred the case to be admitted to the Hospitalist team. The ED provider then spoke to me and the patient will be placed in Observation for managing enteritis versus partial small bowel obstruction. - HOSPITAL COURSE Hospital Course: (1) N&V (nausea and vomiting) Our impression was that he had either an ileus, or gastroenteritis or partial small bowel obstruction. After receiving IV antiemetics in the ER, his symptoms slowly subsided and he had no more nausea vomiting. He was put on clear liquids and tolerated this. (2) Partial small bowel obstruction The patient still had slight output through his ileostomy, therefore he was not completely obstructed. We suspected he may have an ileus or gastroenteritis however it resolved in under 24 hours. He was put on IV fluids, clear liquid diet and his stool output through the ileostomy became normal. The diet was advanced which she tolerated and he was able to be discharged home the following day. (3) Crohn's disease As per history. He is followed by Nursery Worker Dr Martinez, in [place], with Morrice. He was advised to have follow-up with his specialist and discuss this event, to get recommendations. (4) Acute kidney injury superimposed on CKD His usual creat is 1.5, and at admission it was 1.9, consistent with some dehydration from the N/V. He received IV fluids. On day of discharge creatinine was 1.6. - ALLERGIES Allergies/Adverse Reactions: Allergies Allergy/AdvReac Type Severity Reaction Status Date / Time aspirin AdvReac Unknown Verified 01/05/24 08:37 NSAIDS (Non-Steroidal AdvReac Unknown Verified 01/05/24 08:37 Anti-Inflamma - MEDICATIONS Home Medications: Ambulatory Orders Medication Instructions Recorded Confirmed [place]-3 Fatty Acids/Fish Oil [Fish 1,000 mg PO BID 12/10/13 01/05/24 Oil 1,000 mg Capsule] Levothyroxine [Synthroid] 100 mcg PO DAILY 12/05/15 01/05/24 Adalimumab-Atto [Amjevita(Cf)] 40 mg SUBQ OAW 10/22/23 01/05/24 Ferrous Sulfate [Feosol] 325 mg PO DAILY 10/22/23 01/05/24 Neutra-Phos [K-Phos Neutral] 750 mg PO TID 10/22/23 01/05/24 Wheat Dextrin [Benefiber] 1 packet PO DAILY 10/22/23 01/05/24 Cyanocobalamin [Vitamin B-12] 1,000 mcg PO DAILY tab 10/24/23 01/05/24 Multivitamin [Theragran] 1 tab PO DAILYWM tab 10/24/23 01/05/24 Sodium Bicarbonate 650 mg PO TID 01/04/24 01/05/24 Cholecalciferol [Vitamin D3] 25 mcg PO DAILY 01/05/24 01/05/24 Meclizine HCl 25 mg PO Q6H PRN 01/05/24 01/05/24 - PHYSICAL EXAM AT DISCHARGE General Appearance: positive: No acute distress, Alert Eyes Bilateral: positive: Normal inspection, EOMI ENT: positive: ENT inspection nml, No signs of dehydration Neck: positive: Nml inspection, No JVD Respiratory: positive: No respiratory distress, Breath sounds nml Cardiovascular: positive: Regular rate & rhythm, No murmur Abdomen: positive: Non-tender, Nml bowel sounds, No distention, Other (Normal appearance of ileostomy and bag) Skin: positive: Warm, Dry Extremities: positive: Non-tender, No pedal edema Neurologic/Psychiatric: positive: Oriented x3, CN's nml (2-12), Motor nml - LABS Result Diagrams: 01/06/24 09:18 01/06/24 09:18 - DIAGNOSTIC IMAGING Diagnostic Imaging Results: Final report reviewed - FOLLOW UP Follow Up: See GI specialist soon for follow-up hospital visit. - TIME SPENT Time Spent in Discharge (Minutes): 20
[2024-01-06] MEDS: DEXTROSE 5%-0.9% NACL 1,000 ML IV SCH (14:45)
[2024-01-07] MEDS ORDERED: FAMOTIDINE 20 MG/2 ML VIAL IVP SCH (09:00)
== END 2024-01-06 15:21 | disposition home or self-care (01) ==
LOC: ED 08:22 → MS2 13:05
PROVIDERS: ADMIT Internal Medicine; ATTEND Internal Medicine
DX: K56.600 Partial intestinal obstruction, unspecified as to cause (principal); K50.90 Crohn's disease, unspecified, without complications; Z93.2 Ileostomy status; N17.9 Acute kidney failure, unspecified; I12.9 Hypertensive chronic kidney disease with stage 1 through stage 4 chronic kidney disease, or unspecified chronic kidney disease; N18.9 Chronic kidney disease, unspecified; E03.9 Hypothyroidism, unspecified; I48.91 Unspecified atrial fibrillation; Z90.49 Acquired absence of other specified parts of digestive tract
CPT/HCPCS: 36415; 80048; 80053; 83690; 83735; 85025; 96374; 96375; 96376; 99284; 99285; A9270; G0378; J1170

== ENCOUNTER 2024-04-17 12:01 | Outpatient (CLI) | payer MEDICARE | END 2024-04-17 23:59 | disposition critical access hospital (66) | LOC: EMS 12:01 | DX: R53.1 Weakness (principal); R53.83 Other fatigue; R06.02 Shortness of breath; R00.0 Tachycardia, unspecified | CPT/HCPCS: A0425; A0429 ==

== ENCOUNTER 2024-04-17 12:30 | Emergency (ER) | payer MEDICARE ==
[2024-04-17] MEDS: SODIUM CHLORIDE 0.9% 1,000 ML IV STA (13:14)
[2024-04-17 13:18] LABS: BASOPHILS % (AUTO) 0.2 %; EOSINOPHILS % (AUTO) 0.1 %; HCT - HEMATOCRIT 38.8 % (42.0-52.0); HGB - HEMOGLOBIN 12.6 g/dL (14.0-18.0); LYMPHOCYTES # (AUTO) 0.6 10^3/uL (1.5-3.5); LYMPHOCYTES % (AUTO) 6.2 %; MEAN CORPUSCULAR HEMOGLOBIN 29.1 pg (27.0-31.0); MEAN CORPUSCULAR HGB CONC 32.5 g/dL (32.0-36.0); MEAN CORPUSCULAR VOLUME 89.6 fL (80.0-94.0); MEAN PLATELET VOLUME 10.4 fL (7.4-11.4); MONOCYTES # (AUTO) 0.5 10^3/uL (0.0-1.0); MONOCYTES % (AUTO) 5.2 %; NEUTROPHILS # (AUTO) 9.1 10^3/uL (1.5-6.6); NEUTROPHILS % (AUTO) 87.9 %; PLT - PLATELET COUNT 255 10^3/uL (130-450); RED BLOOD COUNT 4.33 10^6/uL (4.70-6.10); WHITE BLOOD COUNT 10.4 x10^3/uL (4.8-10.8)
--- NOTE | 2024-04-17 13:28 | ED Physician Documentation ---
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 He states that today he was loading up his truck with recyclable materials and felt like he was short of breath and lightheaded. He states he felt like he was overexerting himself. No loss of consciousness. No syncope. He states he feels normal now after resting. No chest pain. No abdominal pain, nausea, vomiting. No fevers. No chills. No cough. No congestion. No leg swelling. He states that he did not eat or drink much today. He states he feels like he may be dehydrated. Review of Systems Constitutional: denies: Fever, Chills Nose: denies: Rhinorrhea / runny nose, Congestion Throat: denies: Sore throat Cardiac: denies: Chest pain / pressure, Palpitations Respiratory: denies: Cough, Wheezing : denies: Dysuria Skin: denies: Rash Musculoskeletal: denies: Neck pain, Back pain Neurologic: denies: Headache PD PAST MEDICAL HISTORY - Past Medical History Cardiovascular: Hypertension, Atrial fibrillation Respiratory: None Neuro: None Endocrine/Autoimmune: HyPOthyroidism GI: Crohn's disease : Renal insuffiency HEENT: None Psych: None Musculoskeletal: None - Past Surgical History Past Surgical History: Yes General: Bowel surgery, Other - Present Medications Home Medications: Ambulatory Orders Medication Instructions Recorded Confirmed [place]-3 Fatty Acids/Fish Oil [Fish 1,000 mg PO BID 12/10/13 01/05/24 Oil 1,000 mg Capsule] Levothyroxine [Synthroid] 100 mcg PO DAILY 12/05/15 01/05/24 Adalimumab-Atto [Amjevita(Cf)] 40 mg SUBQ OAW 10/22/23 01/05/24 Ferrous Sulfate [Feosol] 325 mg PO DAILY 10/22/23 01/05/24 Neutra-Phos [K-Phos Neutral] 750 mg PO TID 10/22/23 01/05/24 Wheat Dextrin [Benefiber] 1 packet PO DAILY 10/22/23 01/05/24 Cyanocobalamin [Vitamin B-12] 1,000 mcg PO DAILY tab 10/24/23 01/05/24 Multivitamin [Theragran] 1 tab PO DAILYWM tab 10/24/23 01/05/24 Sodium Bicarbonate 650 mg PO TID 01/04/24 01/05/24 Cholecalciferol [Vitamin D3] 25 mcg PO DAILY 01/05/24 01/05/24 Meclizine HCl 25 mg PO Q6H PRN 01/05/24 01/05/24 - Allergies Allergies/Adverse Reactions: Allergies Allergy/AdvReac Type Severity Reaction Status Date / Time aspirin AdvReac Unknown Verified 04/17/24 12:41 NSAIDS (Non-Steroidal AdvReac Unknown Verified 04/17/24 12:41 Anti-Inflamma - Social History Does the pt smoke?: Yes Smoking Status: Current every day smoker Does the pt drink ETOH?: Yes Does the pt have substance abuse?: No - Immunizations Immunizations are current?: Yes - POLST Patient has POLST: No PD ED PE NORMAL - Vitals Vital signs reviewed: Yes - General General: Alert and oriented X 3, No acute distress - HEENT HEENT: PERRL, Other (dry lips and tongue) - Neck Neck: Supple, no meningeal sign - Cardiac Cardiac: RRR, Strong equal pulses - Respiratory Respiratory: No respiratory distress, Clear bilaterally - Abdomen Abdomen: Soft, Non tender, Non distended - Back Back: No CVA TTP, No spinal TTP - Derm Derm: Warm and dry - Extremities Extremities: No edema, No calf tenderness / cord - Neuro Neuro: Alert and oriented X 3, crocheter 2-12 intact, No motor deficit, No sensory deficit, Normal speech Eye Opening: Spontaneous Motor: Obeys Commands Verbal: Oriented GCS Score: 15 - Psych Psych: Normal mood, Normal affect Results - Vitals Vitals: Vital Signs - 24 hr 04/17/24 04/17/24 12:37 14:18 Temperature 36.7 C Heart Rate 102 H 106 H Respiratory 18 21 Rate Blood Pressure 136/87 H 170/101 H O2 Saturation 92 95 Oxygen O2 Source Room air - EKG (time done) 1315 EKG releavant findings:: EKG personally interpreted by author of this note. Relevant findings are: Rate: Rate (enter#) (100) Rhythm: Sinus tachycardia Intervals: RBBB - Labs Labs: Laboratory Tests 04/17/24 04/17/24 13:08 13:08 WBC 10.4 RBC 4.33 L Hgb 12.6 L Hct 38.8 L MCV 89.6 MCH 29.1 MCHC 32.5 RDW 14.0 Plt Count 255 MPV 10.4 Neut # (Auto) 9.1 H Lymph # (Auto) 0.6 L [place] # (Auto) 0.5 Eos # (Auto) 0.0 Baso # (Auto) 0.0 Absolute Nucleated RBC 0.00 Nucleated RBC % 0.0 Sodium 138 Potassium 3.9 Chloride 105 Carbon Dioxide 26 Anion Gap 7.0 BUN 37 H Creatinine 1.7 H Estimated GFR (MDRD) 39 L Glucose 101 Calcium 9.3 Total Bilirubin 0.5 AST 37 ALT 39 Alkaline Phosphatase 84 Troponin I High Sens 20.9 H* Total Protein 6.7 Albumin 3.4 Globulin 3.3 Albumin/Globulin Ratio 1.0 Lipase 34 - Rads (name of study) cxr Relevant Findings:: Final report received, See rad report PD Medical Decision Making - ED course Complexity details: reviewed results, re-evaluated patient, considered differential, d/w patient, d/w family ED course: 83-year-old male presents after feeling lightheaded and out of breath while exerting himself today. Appears to be likely overexertion. Has high since he troponin is underneath his normal baseline, normal baseline is 27-30. Did not have any chest pain. EKG does not show any acute abnormalities. Chest x-ray does not show any acute abnormalities. Asymptomatic here. He states after resting for a few minutes all of his symptoms went away. Given IV fluids here. Immediately upon arrival he is asking for food and something to drink. No indication of arrhythmia. No indication of PE. No palpitations. Patient counseled regarding signs and symptoms for which I believe and urgent re- evaluation would be necessary. Patient with good understanding of and agreement to plan and is comfortable going home at this time This document was made in part using voice recognition software. While efforts are made to proofread this document, sound alike and grammatical errors may occur. Departure - Departure Disposition: 01 Home, Self Care Clinical Impression: Near syncope Condition: Good Instructions: ED Near Syncope Unkn Follow-Up: KIEL GODINEZ MD [Primary Care Provider] - Within 1 week Comments: Please return if you worsen. Make sure you are eating and drinking normally. Make sure you are drinking plenty of water at home. You need to be cautious not to overexert yourself as well. Your laboratory testing and chest x-ray and EKG do not show any acute abnormalities at this time. Forms: PCP List Discharge Date/Time: 04/17/24 14:19
--- NOTE | 2024-04-17 13:32 | XRAY Report ---
PROCEDURE: Chest 1V INDICATIONS: Chest Pain TECHNIQUE: One view of the chest was acquired. COMPARISON: 10/21/2023. FINDINGS: Surgical changes and devices: None. Lungs and pleura: No pleural effusions or pneumothorax. Patchy right basilar atelectasis. Mediastinum: Mediastinal contours appear normal. Heart size is normal. Bones and chest wall: No suspicious bony lesions. Overlying soft tissues appear unremarkable. IMPRESSION: Patchy right basilar atelectasis. Progress films are recommended until clear. Reviewed by: Carlos Gan MD on 04/17/2024 1:31 PM PDT Approved by: Carlos Gan MD on 04/17/2024 1:31 PM PDT Station ID: [id number]
[2024-04-17 13:33] LABS: ALBUMIN 3.4 g/dL (3.2-5.5); BILIRUBIN,TOTAL 0.5 mg/dL (0.2-1.0); CALCIUM 9.3 mg/dL (8.5-10.3); CREATININE 1.7 mg/dL (0.6-1.3); POTASSIUM 3.9 mmol/L (3.5-4.5); TOTAL PROTEIN 6.7 g/dL (6.4-8.9)
[2024-04-17 13:43] LABS: TROPONIN I HIGH SENSITIVITY 20.9 ng/L (2.3-19.7)
[2024-04-17 14:27] VITALS: BP 170/101; O2SAT 95
== END 2024-04-17 14:19 | disposition home or self-care (01) ==
LOC: ED 12:30
DX: R55 Syncope and collapse (principal); F17.200 Nicotine dependence, unspecified, uncomplicated
CPT/HCPCS: 36415; 80053; 83690; 84484; 85025; 93005; 99284

== ENCOUNTER 2024-06-28 13:01 | Emergency (ER) | payer MEDICARE ==
--- NOTE | 2024-06-28 13:28 | ED Physician Documentation ---
History of Present Illness - Stated complaint Stated Complaint: LESA BIGGS - Chief complaint Chief Complaint: General - History obtained from History obtained from: Patient, Family () - History of Present Illness Timing: Prior to arrival - Additonal information Additional information: Patient is an 84-year-old male with past medical history of orthostatic hypotension, history of Crohn's, history of hypertension, history of lung mass with lobectomy. Patient presents to the emergency department with Symptoms of lightheaded after taking first dose of 60 mg nifedipine.Patient has elevated blood pressure readings while taking amlodipine 2 point felt milligrams he saw his PCP last week and was switched to nifedipine 60 mg extended release. Abiel sunshine notes that he took 1 dose of nifedipine this morning and went for a walk when he returned he felt dizzy and lightheaded. He sat down and took his blood pressure and it was slightly decreased with SBP in the 90s. Patient came to the emergency department shortly after with similar symptoms. Patient denies any headaches no chest pain no shortness of breath no lower leg swelling. He was feeling fine when he woke up this morning prior to taking the medication PD PAST MEDICAL HISTORY - Past Medical History Past Medical History: Yes Cardiovascular: Hypertension, Atrial fibrillation Respiratory: None Neuro: None Endocrine/Autoimmune: HyPOthyroidism GI: Crohn's disease : Renal insuffiency HEENT: None Psych: None Musculoskeletal: None - Past Surgical History Past Surgical History: Yes General: Bowel surgery, Other - Present Medications Home Medications: Ambulatory Orders Medication Instructions Recorded Confirmed Magnolia-3 Fatty Acids/Fish Oil [Fish 1,000 mg PO BID 12/10/13 06/28/24 Oil 1,000 mg Capsule] Levothyroxine [Synthroid] 100 mcg PO DAILY 12/05/15 06/28/24 Adalimumab-Atto [Amjevita(Cf)] 40 mg SUBQ OAW 10/22/23 06/28/24 Ferrous Sulfate [Feosol] 325 mg PO DAILY 10/22/23 06/28/24 Neutra-Phos [K-Phos Neutral] 500 mg PO TID 10/22/23 06/28/24 Wheat Dextrin [Benefiber] 1 packet PO DAILY 10/22/23 06/28/24 Cyanocobalamin [Vitamin B-12] 1,000 mcg PO DAILY tab 10/24/23 06/28/24 Multivitamin [Theragran] 1 tab PO DAILYWM tab 10/24/23 06/28/24 Sodium Bicarbonate 650 mg PO BID 01/04/24 06/28/24 Cholecalciferol [Vitamin D3] 25 mcg PO DAILY 01/05/24 06/28/24 Meclizine HCl 25 mg PO Q6H PRN 01/05/24 06/28/24 Ciprofloxacin HCl [Cipro] 500 mg PO BID 06/28/24 06/28/24 Finasteride [Proscar] 5 mg PO DAILY 06/28/24 06/28/24 Losartan Potassium 12.5 mg PO DAILY 06/28/24 06/28/24 NIFEdipine [Nifedipine ER] 30 mg PO DAILY #7 tab 06/28/24 NIFEdipine [Nifedipine ER] 60 mg PO DAILY 06/28/24 06/28/24 Tamsulosin [Flomax] 0.4 mg PO DAILY 06/28/24 06/28/24 - Allergies Allergies/Adverse Reactions: Allergies Allergy/AdvReac Type Severity Reaction Status Date / Time aspirin AdvReac Unknown Verified 06/28/24 13:13 NSAIDS (Non-Steroidal AdvReac Unknown Verified 06/28/24 13:13 Anti-Inflamma - Social History Does the pt smoke?: Yes Smoking Status: Current every day smoker Does the pt drink ETOH?: Yes Does the pt have substance abuse?: No - Immunizations Immunizations are current?: Yes - POLST Patient has POLST: No PD ED PE NORMAL - Vitals Vital signs reviewed: Yes - General General: Alert and oriented X 3 - HEENT HEENT: Atraumatic, PERRL - Neck Neck: Supple, no meningeal sign - Cardiac Cardiac: RRR, No murmur, No gallop, No rub - Respiratory Respiratory: No respiratory distress, Clear bilaterally - Abdomen Abdomen: Normal bowel sounds - Derm Derm: Normal color - Neuro Neuro: Alert and oriented X 3 Eye Opening: Spontaneous Motor: Obeys Commands Verbal: Oriented GCS Score: 15 Results - Vitals Vitals: Vital Signs - 24 hr 06/28/24 06/28/24 06/28/24 13:13 14:05 15:35 Temperature 36.8 C Heart Rate 88 81 Heart Rate [ 83 Sitting] Heart Rate [ 103 H Standing] Heart Rate [ 84 Supine] Respiratory 16 24 Rate Blood Pressure 94/44 L 99/58 L Blood Pressure 104/57 L [Sitting] Blood Pressure 96/62 [Standing] Blood Pressure 120/76 [Supine] O2 Saturation 98 93 Oxygen O2 Source Room air - Labs Labs: Laboratory Tests 06/28/24 06/28/24 13:48 13:48 WBC 8.7 RBC 4.45 L Hgb 13.0 L Hct 40.2 L MCV 90.3 MCH 29.2 MCHC 32.3 RDW 14.0 Plt Count 289 MPV 10.0 Neut # (Auto) 7.3 H Lymph # (Auto) 0.8 L Leon # (Auto) 0.5 Eos # (Auto) 0.0 Baso # (Auto) 0.0 Absolute Nucleated RBC 0.00 Nucleated RBC % 0.0 Sodium 132 L Potassium 4.0 Chloride 102 Carbon Dioxide 22 Anion Gap 8.0 BUN 40 H Creatinine 2.2 H Estimated GFR (MDRD) 29 L Glucose 216 H Calcium 9.1 Total Bilirubin 0.4 AST 19 ALT 17 Alkaline Phosphatase 80 Total Protein 7.4 Albumin 3.7 Globulin 3.7 Albumin/Globulin Ratio 1.0 PD Medical Decision Making - ED course Complexity details: reviewed old records, reviewed results ED course: Patient is an 84-year-old male presenting to the emergency department after starting new blood pressure medication this morning. Patient had hypotension at home on blood pressure cuff which was repeated here in emergency department on triage. Patient denies any associated symptoms other than lightheadedness with the symptoms. This was the first time taking nifedipine after being switched from amlodipine 2.5 to nifedipine 60 mg extended release after uncontrolled blood pressure. Patient labs obtained showed no acute findings. Patient was placed on telemetry and had blood pressure monitored here in emergency department. He was given a liter of IV fluids. Previous echo in the past showed EF of 55% back in 2022. No signs of fluid overload or CHF on examination. Patient reevaluated after fluids given he is feeling significantly better eating and drinking here in the emergency department. Orthostatics were repeated shows no significant orthostatic hypotension and he denies any other symptoms while orthostatics were performed. Instructed patient to decrease nifedipine to 30 mg extended release new prescription will be sent and instructed patient to follow-up with his PCP and let her know that he was seen here in the emergency department. He is instructed to return if symptoms return if he develops any chest pain shortness of breath lower leg swelling dizziness headaches vision changes or any other new or worsening symptoms. Patient understands and is agreeable with this plan Departure - Departure Disposition: 01 Home, Self Care Clinical Impression: Hypotension due to medication Condition: Good Comments: Your workup here in the emergency department was reassuring your blood pressure improved here in the emergency department to the 110s after he received a liter of fluid. Given symptom improvement and reassuring vital signs and labs here in emergency department I feel safe sending you home. You should follow-up with your primary care doctor you should start taking nifedipine at half the dose 30 mg extended release at home. Follow-up with your PCP in the outpatient setting to ensure resolution of symptoms. Return to the emergency department with any worsening shortness of breath any symptoms of persistent lightheadedness or dizziness any chest pain or any other new or worsening symptoms you should return to the emergency department Forms: PCP List
[2024-06-28 13:55] LABS: BASOPHILS % (AUTO) 0.2 %; EOSINOPHILS % (AUTO) 0.3 %; HCT - HEMATOCRIT 40.2 % (42.0-52.0); LYMPHOCYTES # (AUTO) 0.8 10^3/uL (1.5-3.5); LYMPHOCYTES % (AUTO) 9.7 %; MEAN CORPUSCULAR HEMOGLOBIN 29.2 pg (27.0-31.0); MEAN CORPUSCULAR HGB CONC 32.3 g/dL (32.0-36.0); MEAN CORPUSCULAR VOLUME 90.3 fL (80.0-94.0); MONOCYTES # (AUTO) 0.5 10^3/uL (0.0-1.0); MONOCYTES % (AUTO) 5.4 %; NEUTROPHILS # (AUTO) 7.3 10^3/uL (1.5-6.6); NEUTROPHILS % (AUTO) 84.1 %; PLT - PLATELET COUNT 289 10^3/uL (130-450); RED BLOOD COUNT 4.45 10^6/uL (4.70-6.10); WHITE BLOOD COUNT 8.7 x10^3/uL (4.8-10.8)
[2024-06-28] MEDS: SODIUM CHLORIDE 0.9% 1,000 ML IV STA (13:57)
[2024-06-28 14:10] VITALS: O2SAT 93
[2024-06-28 14:10] LABS: ALBUMIN 3.7 g/dL (3.2-5.5); BILIRUBIN,TOTAL 0.4 mg/dL (0.2-1.0); CALCIUM 9.1 mg/dL (8.5-10.3); CREATININE 2.2 mg/dL (0.6-1.3); TOTAL PROTEIN 7.4 g/dL (6.4-8.9)
[2024-06-28 16:16] VITALS: BP 110/63
== END 2024-06-28 16:25 | disposition home or self-care (01) ==
LOC: ED 13:01
DX: I95.2 Hypotension due to drugs (principal); T46.1X5A Adverse effect of calcium-channel blockers, initial encounter; I10 Essential (primary) hypertension; I48.91 Unspecified atrial fibrillation; E03.9 Hypothyroidism, unspecified; F17.200 Nicotine dependence, unspecified, uncomplicated; Z79.899 Other long term (current) drug therapy
CPT/HCPCS: 36415; 80053; 85025; 96360; 99283